=== PATIENT | female | born 1955 | race Hispanic/Latino ===

== ENCOUNTER 2019-05-01 09:21 | Emergency (ER) | payer OTHER ==
[2019-05-01] MEDS ORDERED: GUAIFENESIN-DM 200/20 MG 10 ML ONE (09:55)
[2019-05-01] MEDS ORDERED: METHYLPREDNISOLONE SOD SUCC 125MG/2ML VIAL ONE (09:55)
[2019-05-01] MEDS ORDERED: ALBUTEROL SULFATE 0.083% 2.5 MG/3 ML INH IH ONE ×2 (10:05→12:55)
[2019-05-01 11:57] LABS: BILIRUBIN,TOTAL 0.8 mg/dL (0.2-1.0); POTASSIUM 3.8 mmol/L (3.5-5.1); TOTAL PROTEIN, SERUM 7.5 g/dL (6.0-8.3)
[2019-05-01 12:17] LABS: ALBUMIN 3.8 g/dL (3.5-5.0); CREATININE 0.4 mg/dL (0.5-1.5)
[2019-05-01] MEDS ORDERED: AZITHROMYCIN 250 MG TABLET PO ONE (12:44)
[2019-05-01] MEDS ORDERED: ACETAMINOPHEN EXTRA STRENGTH 500 MG TABLET ONE (12:44)
[2019-05-01 13:08] LABS: BASOPHILS % (AUTO) 0.3 % (0.0-5.0); EOSINOPHILS % (AUTO) 0.3 % (0.0-8.0); HEMATOCRIT 44.1 % (36-48); LYMPHOCYTES % (AUTO) 14.2 % (21.0-51.0); MEAN CORPUSCULAR HEMOGLOBIN 28.6 pg (27.0-33.0); MEAN CORPUSCULAR HGB CONC 32.7 g/dL (32.0-36.0); MEAN CORPUSCULAR VOLUME 87.7 fL (79-99); MONOCYTES % (AUTO) 3.4 % (3.0-13.0); NEUTROPHILS % (AUTO) 81.5 % (40.0-77.0); PLATELET COUNT (AUTO) 121 K/uL (130-400); RED BLOOD CELL COUNT(AUTO) 5.03 MIL/uL (4.00-5.50); RED CELL DISTRIBUTION WIDTH 13.2 % (11.0-15.5); WHITE BLOOD COUNT (AUTO) 3.6 K/uL (4.8-10.8)
== END 2019-05-01 13:29 | disposition home or self-care (01) ==
LOC: EDH 09:21
DX: J20.9 Acute bronchitis, unspecified (principal); J02.0 Streptococcal pharyngitis; Z90.49 Acquired absence of other specified parts of digestive tract; Z90.710 Acquired absence of both cervix and uterus; Z98.890 Other specified postprocedural states
CPT/HCPCS: 36415; 71046; 80053; 85025; 87040; 87804 ×2; 87880; 94640 ×2; 96372; 99284; J2930

== ENCOUNTER 2019-06-12 08:16 | Emergency (ER) | payer OTHER ==
[2019-06-12 08:49] LABS: BASOPHILS % (AUTO) 0.6 % (0.0-5.0); EOSINOPHILS % (AUTO) 4.2 % (0.0-8.0); HEMATOCRIT 40.9 % (36-48); LYMPHOCYTES % (AUTO) 25.5 % (21.0-51.0); MEAN CORPUSCULAR HEMOGLOBIN 29.3 pg (27.0-33.0); MEAN CORPUSCULAR HGB CONC 33.5 g/dL (32.0-36.0); MEAN CORPUSCULAR VOLUME 87.6 fL (79-99); MONOCYTES % (AUTO) 6.3 % (3.0-13.0); NEUTROPHILS % (AUTO) 63.2 % (40.0-77.0); PLATELET COUNT (AUTO) 142 K/uL (130-400); RED BLOOD CELL COUNT(AUTO) 4.67 MIL/uL (4.00-5.50); RED CELL DISTRIBUTION WIDTH 13.5 % (11.0-15.5); WHITE BLOOD COUNT (AUTO) 5.1 K/uL (4.8-10.8)
[2019-06-12 09:00] LABS: CREATININE 0.8 mg/dL (0.5-1.5); POTASSIUM 3.8 mmol/L (3.5-5.1)
[2019-06-12 09:02] LABS: APPEARANCE,URINE SL CLOUDY (CLEAR); BILIRUBIN,URINE NEGATIVE (NEGATIVE); COLOR,URINE YELLOW (YELLOW); GLUCOSE, URINE (UA) NEGATIVE (NEGATIVE); KETONES,URINE NEGATIVE (NEGATIVE); LEUKOCYTE ESTERASE ,URINE MODERATE (NEGATIVE); NITRATE,URINE NEGATIVE (NEGATIVE); OCCULT BLOOD,URINE TRACE-INTACT (NEGATIVE); PH,URINE 5.5 (5.0-8.0); PROTEIN,URINE NEGATIVE (NEGATIVE); UROBILINOGEN,URINE 0.2 mg/dL (0.2-1.0)
[2019-06-12 09:04] LABS: ALBUMIN 3.3 g/dL (3.5-5.0); BILIRUBIN,TOTAL 0.6 mg/dL (0.2-1.0); TOTAL PROTEIN, SERUM 7.1 g/dL (6.0-8.3)
[2019-06-12 09:09] LABS: INR 1.02 (0.85-1.15); PARTIAL THROMBOPLASTIN TIME 27.6 SEC (26.3-35.5); PROTHROMBIN TIME 10.7 SEC (9.6-11.6)
[2019-06-12 09:10] LABS: BACTERIA,URINE Many /HPF (None Seen); MUCUS,URINE Few LPF (None Seen); RBC,URINE 0-1 /HPF (0-1); SQUAMOUS EPITHELIAL CELL,UR Many /HPF (0-2)
[2019-06-12] MEDS ORDERED: KETOROLAC TROMETHAMINE 30MG/ML ONE (09:53)
[2019-06-12] MEDS ORDERED: CEFTRIAXONE SODIUM 1 GM ONE (09:53)
[2019-06-12] MEDS ORDERED: SODIUM CHLORIDE 0.9% 1000ML 1,000 ML IV ONE (09:54)
== END 2019-06-12 10:49 | disposition home or self-care (01) ==
LOC: EDH 08:16
DX: N39.0 Urinary tract infection, site not specified (principal); R03.0 Elevated blood-pressure reading, without diagnosis of hypertension; Z90.49 Acquired absence of other specified parts of digestive tract; Z90.710 Acquired absence of both cervix and uterus
CPT/HCPCS: 36415; 71045; 80053; 81001; 82150; 82550; 83690; 84484; 85025; 85610; 85730; 87077; 87088; 87186; 93005; 96361; 96374; 96375; 99285; J0696; J1885; J7030

== ENCOUNTER → 2019-07-12 | Outpatient (CLI) | payer OTHER | END | disposition home or self-care (01) | LOC: RAH 08:25 | PROVIDERS: ATTEND Internal Medicine | DX: K76.0 Fatty (change of) liver, not elsewhere classified (principal); Z90.49 Acquired absence of other specified parts of digestive tract | CPT/HCPCS: 76705 ==

== ENCOUNTER 2019-11-04 12:41 | Inpatient (IN) | payer OTHER ==
[~2019-11-04] VITALS: Ht 162.6 cm; Wt 101.4 kg
[2019-11-04 13:58] LABS: BASOPHILS % (AUTO) 0.3 % (0.0-5.0); HEMATOCRIT 40.8 % (36-48); LYMPHOCYTES % (AUTO) 8.8 % (21.0-51.0); MEAN CORPUSCULAR HEMOGLOBIN 29.5 pg (27.0-33.0); MEAN CORPUSCULAR HGB CONC 34.8 g/dL (32.0-36.0); MEAN CORPUSCULAR VOLUME 84.8 fL (79-99); MONOCYTES % (AUTO) 4.6 % (3.0-13.0); PLATELET COUNT (AUTO) 143 K/uL (130-400); RED BLOOD CELL COUNT(AUTO) 4.81 MIL/uL (4.00-5.50); RED CELL DISTRIBUTION WIDTH 12.7 % (11.0-15.5); WHITE BLOOD COUNT (AUTO) 3.9 K/uL (4.8-10.8)
[2019-11-04 14:09] LABS: ABG BASE EXCESS -1.5 mmol/L (-2.0-3.0); ABG HCO3 22.2 mmol/L (21.0-28.0); ABG OXYGEN SATURATION 83.8 % (95.0-99.0); ABG PCO2 35 mmHg (32-45)
[2019-11-04] MEDS ORDERED: ALBUTEROL INHALER 90MCG/INH IH ONE (14:14)
[2019-11-04] MEDS ORDERED: METHYLPREDNISOLONE SOD SUCC 40MG/ML 1ML ONE (14:15)
[2019-11-04] MEDS ORDERED: CEFTRIAXONE SODIUM 1 GM ONE (14:15)
[2019-11-04] MEDS ORDERED: SODIUM CHLORIDE 0.9% 50 ML IV ONE (14:16)
[2019-11-04 14:19] LABS: POTASSIUM 3.9 mmol/L (3.5-5.1)
[2019-11-04 14:20] LABS: INR 1.02 (0.85-1.15); PARTIAL THROMBOPLASTIN TIME 29.9 SEC (26.3-35.5)
[2019-11-04] MEDS ORDERED: SODIUM CHLORIDE 0.9% 1000ML 1,000 ML IV ONE (14:21)
[2019-11-04 14:32] LABS: ALBUMIN 3.1 g/dL (3.5-5.0); BILIRUBIN,TOTAL 0.8 mg/dL (0.2-1.0); TOTAL PROTEIN, SERUM 7.4 g/dL (6.0-8.3); TROPONIN I 0.04 ng/mL (0.00-0.06)
[2019-11-04] MEDS ORDERED: AZITHROMYCIN 500MG+NS 250ML 250 ML IV ONE (14:41)
[2019-11-04 15:19] LABS: APPEARANCE,URINE Clear (CLEAR); BILIRUBIN,URINE Negative (NEGATIVE); COLOR,URINE Dark Yellow (YELLOW); GLUCOSE, URINE (UA) Negative (NEGATIVE); KETONES,URINE Negative (NEGATIVE); LEUKOCYTE ESTERASE ,URINE Trace (NEGATIVE); NITRATE,URINE Positive (NEGATIVE); OCCULT BLOOD,URINE Trace (NEGATIVE); PROTEIN,URINE Trace mg/dL (NEGATIVE)
[2019-11-04 16:03] LABS: BACTERIA,URINE Moderate /HPF (None Seen); RBC,URINE 0-1 /HPF (0-1)
[2019-11-04 16:04] LABS: SQUAMOUS EPITHELIAL CELL,UR Few /HPF (0-2)
[2019-11-04 16:05] LABS: MUCUS,URINE Few LPF (None Seen)
[2019-11-04 21:00] VITALS: BP 99/58
--- NOTE | 2019-11-04 21:00 | NUR ---
CHANGE SHIFT ASSESSMENT DONE, PLEASE REFER TO CHART. NO MEDS DUE AT THIS TIME. ASSISTED TO URINATE IN BEDPAN. PLACED A DIAPER PT REQUESTED. KEPT COMFORTABLE WITH HOB ELEVATED. WILL MONITOR PT. Addendum: 11/05/19 at 0141 by GAURAV MEYER RN RN Amended: Links added.
[2019-11-05] VITALS: BP 105/65
[2019-11-05] MEDS ORDERED: ERGOCALCIFEROL (VITAMIN D2) 50,000 UNIT CAPSULE PO ONE
[2019-11-05] MEDS ORDERED: ALBUTEROL INHALER 90MCG/INH IH PRN
[2019-11-05] MEDS ORDERED: ONDANSETRON HCL 4 MG/2 ML VIAL IV PRN
--- NOTE | 2019-11-05 | NUR ---
ADMIT KESHAWN ALVA RN, ASKED ABOUT PT'S STATUS. INFORMED THAT PT HAS NOT BEEN ADMITTED YET. VANIGE, ENVIRONMENTAL REMEDIATION SPECIALIST BUTT MAKER FOR HOSPITALIST WAS PAGED AND INFORMED OF PENDING ADMISSION BY ER MD. NEW ORDERS RECEIVED, PLEASE REFER TO CPOE.
[2019-11-05] MEDS ORDERED: IOHEXOL-350 75 ML VIAL IV ONE (00:26)
--- NOTE | 2019-11-05 01:00 | NUR ---
CONSENT TROLLEY CAR MECHANIC CALLED ABOUT CT. SENIOR MATERIALS ANALYST ASSURED TO GET CONSENT AND HAVE PIV ACCESS. EXPLAINED NEED TO CT SCAN TO PT, VERBALIZES UNDERSTANDING. CONSENT SIGNED AND WITNESSED BY SENIOR MATERIALS ANALYST. PLACED IN CHART. PIV INSERTED TO RFA G20. AWAITING CT.
[2019-11-05] MEDS ORDERED: ERGOCALCIFEROL (VITAMIN D2) 50,000 UNIT CAPSULE ONE (01:01)
[2019-11-05] MEDS ORDERED: CEFTRIAXONE SODIUM 1 GM ONE ×2 (01:01→10:29)
[2019-11-05] MEDS: CEFTRIAXONE SODIUM 1 GM IVP SCH ×2 (01:05→11:18)
--- NOTE | 2019-11-05 01:49 | NUR ---
CT PT TAKEN TO CT SCAN BY ROLL CLEANER.
[2019-11-05 04:00] VITALS: BP 109/64
--- NOTE | 2019-11-05 05:30 | NUR ---
DRAW ASKED DEBBIE DAVEY TO DRAW BLOOD OF PT. SENT TO LAB VIA TUBE SYSTEM. NO CONCERNS VERBALIZED. FOR MORE CARE.
--- NOTE | 2019-11-05 08:00 | NUR ---
ASSUMED CARE OF PATIENT RECEIVED REPORT FROM NIGHT NURSE, DEBBIE CONLEY. PATIENT O X 3, PT NOTED TO BE WEAK. HOB 30 DEGREES. RESPIRATIONS LABORED AT TIMES OF EXERTION INCLUDING TALKING AND REPOSITIONING INCLUDING LEFT AND RIGHT SIDE LYING POSITION. OXYGEN @ 100% NON REBREATHER MASK. NOTED TO DESATURATED WHEN REPOSITIONED OR EXERTION INCLUDING TALKING O2 SATURATIONS NOTED TO DROP TO 80'S. PT INSTRUCTED TO DO RELAXATION BREATHING EXERCISES. PT VOIDS INCONTINENT, DIAPER CHANGED, AND PERICARE RENDERED. REPOSITIONED PATIENT IN THE BED. BED IN LOWEST POSITION. CALLBELL IN REACH. SIDE RAILS UP X 2.
[2019-11-05 08:30] VITALS: BP 116/71
[2019-11-05] MEDS ORDERED: ENOXAPARIN SODIUM 40 MG/0.4 ML SYRINGE SQ SCH (09:00)
[2019-11-05] MEDS ORDERED: DOXYCYCLINE HYCLATE 100 MG TABLET PO ONE ×2 (10:28→20:22)
[2019-11-05] MEDS ORDERED: ASCORBIC ACID 500 MG TAB ONE (10:29)
[2019-11-05] MEDS ORDERED: ENOXAPARIN SODIUM 40 MG/0.4 ML SYRINGE SQ ONE (10:29)
[2019-11-05] MEDS ORDERED: ZINC SULFATE 220 CAPSULE ONE (10:29)
[2019-11-05] MEDS ORDERED: METHYLPREDNISOLONE SOD SUCC 125MG/2ML VIAL ONE (10:32)
[2019-11-05] MEDS ORDERED: FAMOTIDINE/PF 20 MG/2 ML VIAL IV ONE (10:32)
[2019-11-05] MEDS: DOXYCYCLINE HYCLATE 100 MG TABLET PO SCH ×2 (10:43→21:00)
[2019-11-05] MEDS: ZINC SULFATE 220 CAPSULE PO SCH (10:43)
[2019-11-05] MEDS: ASCORBIC ACID 500 MG TAB PO SCH (10:43)
[2019-11-05] MEDS: METHYLPREDNISOLONE SOD SUCC 40MG/ML 1ML IVP SCH ×3 (10:43→21:00)
[2019-11-05] MEDS: FAMOTIDINE 20MG TAB 20 MG TAB PO SCH ×2 (10:43→21:00)
[2019-11-05 12:30] VITALS: BP 125/64
[2019-11-05] MEDS ORDERED: ACETAMINOPHEN 325 MG TAB ONE ×2 (12:57→16:18)
[2019-11-05] MEDS: ACETAMINOPHEN 325 MG TAB PO PRN (12:59)
[2019-11-05] MEDS ORDERED: ONDANSETRON HCL 4 MG/2 ML VIAL ONE (14:58)
--- NOTE | 2019-11-05 15:00 | NUR ---
REPORT GIVEN TO ED NURSE, LAURA, ASSUMED CARE OF PATIENT.
--- NOTE | 2019-11-05 17:43 | NUR ---
cm note call made to pt spouse, states pt resides at home with spouse, independent with adls and ambulation. no dme. no services. works, dc plan is back home. no dc needs. Addendum: 11/05/19 at 1750 by BETSY MERCADO CM Amended: Links added.
[2019-11-05] MEDS ORDERED: METHYLPREDNISOLONE SOD SUCC 40MG/ML 1ML ONE (21:29)
[2019-11-06] MEDS ORDERED: CEFTRIAXONE SODIUM 1 GM ONE ×2 (01:31→10:55)
[2019-11-06] MEDS: CEFTRIAXONE SODIUM 1 GM IVP SCH ×2 (01:34→12:00)
[2019-11-06 03:44] LABS: HEMATOCRIT 41.7 % (36-48); MEAN CORPUSCULAR HEMOGLOBIN 29.1 pg (27.0-33.0); MEAN CORPUSCULAR HGB CONC 34.1 g/dL (32.0-36.0); MEAN CORPUSCULAR VOLUME 85.5 fL (79-99); RED BLOOD CELL COUNT(AUTO) 4.88 MIL/uL (4.00-5.50); RED CELL DISTRIBUTION WIDTH 12.8 % (11.0-15.5); WHITE BLOOD COUNT (AUTO) 5.9 K/uL (4.8-10.8)
[2019-11-06 03:49] LABS: CREATININE 0.8 mg/dL (0.5-1.5); CRP QUANTITATIVE 57.4 mg/L (0.00-9.0); POTASSIUM 3.9 mmol/L (3.5-5.1)
[2019-11-06] MEDS: FAMOTIDINE 20MG TAB 20 MG TAB PO SCH ×2 (09:00→21:00)
[2019-11-06] MEDS: ZINC SULFATE 220 CAPSULE PO SCH (09:00)
[2019-11-06] MEDS: ASCORBIC ACID 500 MG TAB PO SCH (09:00)
[2019-11-06] MEDS: DOXYCYCLINE HYCLATE 100 MG TABLET PO SCH ×2 (09:00→21:00)
[2019-11-06] MEDS: ENOXAPARIN SODIUM 60 MG/0.6 ML SQ SCH (09:00)
[2019-11-06] MEDS: METHYLPREDNISOLONE SOD SUCC 40MG/ML 1ML IVP SCH ×3 (09:00→21:00)
[2019-11-06] MEDS ORDERED: ASCORBIC ACID 500 MG TAB ONE (10:54)
[2019-11-06] MEDS ORDERED: METHYLPREDNISOLONE SOD SUCC 40MG/ML 1ML ONE ×2 (10:54→22:28)
[2019-11-06] MEDS ORDERED: DOXYCYCLINE HYCLATE 100 MG TABLET PO ONE ×2 (10:54→22:28)
[2019-11-06] MEDS ORDERED: ENOXAPARIN SODIUM 60 MG/0.6 ML SQ ONE (10:54)
[2019-11-06] MEDS ORDERED: FAMOTIDINE/PF 20 MG/2 ML VIAL IV ONE (10:55)
[2019-11-06] MEDS ORDERED: ZINC SULFATE 220 CAPSULE ONE (10:55)
[2019-11-07 04:47] LABS: CRP QUANTITATIVE 48.6 mg/L (0.00-9.0)
[2019-11-07] MEDS ORDERED: ACETAMINOPHEN 325 MG TAB ONE (06:07)
[2019-11-07] MEDS ORDERED: ENOXAPARIN SODIUM 60 MG/0.6 ML SQ ONE (08:41)
[2019-11-07] MEDS ORDERED: DOXYCYCLINE HYCLATE 100 MG TABLET PO ONE ×2 (08:41→20:24)
[2019-11-07] MEDS ORDERED: METHYLPREDNISOLONE SOD SUCC 40MG/ML 1ML ONE ×2 (08:41→20:24)
[2019-11-07] MEDS ORDERED: ASCORBIC ACID 500 MG TAB ONE (08:42)
[2019-11-07] MEDS ORDERED: CEFTRIAXONE SODIUM 1 GM ONE (08:42)
[2019-11-07] MEDS ORDERED: ZINC SULFATE 220 CAPSULE ONE (08:42)
[2019-11-07] MEDS ORDERED: FAMOTIDINE/PF 20 MG/2 ML VIAL IV ONE ×2 (08:43→20:25)
[2019-11-07] MEDS: ENOXAPARIN SODIUM 60 MG/0.6 ML SQ SCH (09:00)
[2019-11-07] MEDS: FAMOTIDINE 20MG TAB 20 MG TAB PO SCH ×2 (09:00→21:00)
[2019-11-07] MEDS: DOXYCYCLINE HYCLATE 100 MG TABLET PO SCH ×2 (09:00→21:00)
[2019-11-07] MEDS: ASCORBIC ACID 500 MG TAB PO SCH (09:00)
[2019-11-07] MEDS: METHYLPREDNISOLONE SOD SUCC 40MG/ML 1ML IVP SCH ×3 (09:00→21:00)
[2019-11-07] MEDS: ZINC SULFATE 220 CAPSULE PO SCH (09:00)
[2019-11-07] MEDS ORDERED: ONDANSETRON HCL 4 MG/2 ML VIAL ONE (11:50)
[2019-11-07] MEDS: CEFTRIAXONE SODIUM 1 GM IVP SCH ×2 (12:00)
--- NOTE | 2019-11-07 15:12 | NUR ---
phone call family updated
[2019-11-07] MEDS ORDERED: LOPERAMIDE HCL 2 MG CAP PO ONE (16:54)
[2019-11-08] MEDS ORDERED: GUAIFENESIN-DM 200/20 MG 10 ML ONE (00:45)
[2019-11-08] MEDS ORDERED: CEFTRIAXONE SODIUM 1 GM ONE ×2 (01:30→08:44)
[2019-11-08 03:36] LABS: BASOPHILS % (AUTO) 0.2 % (0.0-5.0); HEMATOCRIT 43.7 % (36-48); LYMPHOCYTES % (AUTO) 5.4 % (21.0-51.0); MEAN CORPUSCULAR HGB CONC 33.4 g/dL (32.0-36.0); MEAN CORPUSCULAR VOLUME 86.9 fL (79-99); MONOCYTES % (AUTO) 2.2 % (3.0-13.0); NEUTROPHILS % (AUTO) 91.3 % (40.0-77.0); PLATELET COUNT (AUTO) 171 K/uL (130-400); RED BLOOD CELL COUNT(AUTO) 5.03 MIL/uL (4.00-5.50); RED CELL DISTRIBUTION WIDTH 12.8 % (11.0-15.5); WHITE BLOOD COUNT (AUTO) 6.5 K/uL (4.8-10.8)
[2019-11-08 03:56] LABS: ALBUMIN 2.6 g/dL (3.5-5.0); BILIRUBIN,TOTAL 0.7 mg/dL (0.2-1.0); CREATININE 0.9 mg/dL (0.5-1.5); CRP QUANTITATIVE 41.5 mg/L (0.00-9.0); POTASSIUM 3.9 mmol/L (3.5-5.1); TOTAL PROTEIN, SERUM 7.2 g/dL (6.0-8.3)
[2019-11-08] MEDS ORDERED: METHYLPREDNISOLONE SOD SUCC 40MG/ML 1ML ONE (08:02)
[2019-11-08] MEDS ORDERED: ENOXAPARIN SODIUM 60 MG/0.6 ML SQ ONE (08:02)
[2019-11-08] MEDS ORDERED: DOXYCYCLINE HYCLATE 100 MG TABLET PO ONE (08:03)
[2019-11-08] MEDS ORDERED: ZINC SULFATE 220 CAPSULE ONE (08:03)
[2019-11-08] MEDS ORDERED: ASCORBIC ACID 500 MG TAB ONE (08:03)
[2019-11-08] MEDS ORDERED: FAMOTIDINE/PF 20 MG/2 ML VIAL IV ONE (08:04)
[2019-11-08] MEDS: METHYLPREDNISOLONE SOD SUCC 40MG/ML 1ML IVP SCH ×3 (09:00→19:44)
[2019-11-08] MEDS: ZINC SULFATE 220 CAPSULE PO SCH (09:00)
[2019-11-08] MEDS: ENOXAPARIN SODIUM 60 MG/0.6 ML SQ SCH (09:00)
[2019-11-08] MEDS: FAMOTIDINE 20MG TAB 20 MG TAB PO SCH ×2 (09:00→19:45)
[2019-11-08] MEDS: DOXYCYCLINE HYCLATE 100 MG TABLET PO SCH ×2 (09:00→19:44)
[2019-11-08] MEDS: ASCORBIC ACID 500 MG TAB PO SCH (09:00)
[2019-11-08] MEDS ORDERED: ACETAMINOPHEN 325 MG TAB ONE (09:19)
[2019-11-08] MEDS: CEFTRIAXONE SODIUM 1 GM IVP SCH ×3 (12:00→19:45)
--- NOTE | 2019-11-08 16:21 | NUR ---
phone call patient update give to Alfonso Molina, spouse. Opportunity given to ask questions. question answered.
[2019-11-08] MEDS ORDERED: LORAZEPAM 2 MG/ML 1 ML VIAL IVP PRN (16:30)
[2019-11-08] MEDS ORDERED: LORAZEPAM 2 MG/ML 1 ML VIAL ONE (16:32)
[2019-11-08 22:50] VITALS: BP 126/74
[2019-11-08] MEDS ORDERED: SODIUM CHLORIDE 0.9% 500ML 1,000 ML IV ONE (23:41)
[2019-11-09] VITALS (7 sets, daily range): BP systolic 121–150; BP diastolic 75–83
[2019-11-09 06:56] LABS: HEMATOCRIT 39.4 % (36-48); LYMPHOCYTES % (AUTO) 8.5 % (21.0-51.0); MEAN CORPUSCULAR HEMOGLOBIN 28.9 pg (27.0-33.0); MEAN CORPUSCULAR HGB CONC 33.5 g/dL (32.0-36.0); MEAN CORPUSCULAR VOLUME 86.4 fL (79-99); MONOCYTES % (AUTO) 3.3 % (3.0-13.0); NEUTROPHILS % (AUTO) 87.1 % (40.0-77.0); PLATELET COUNT (AUTO) 152 K/uL (130-400); RED BLOOD CELL COUNT(AUTO) 4.56 MIL/uL (4.00-5.50); RED CELL DISTRIBUTION WIDTH 12.5 % (11.0-15.5); WHITE BLOOD COUNT (AUTO) 4.5 K/uL (4.8-10.8)
[2019-11-09] MEDS: ACETAMINOPHEN 325 MG TAB PO PRN ×3 (06:59→20:32)
[2019-11-09 07:00] LABS: ALBUMIN 2.6 g/dL (3.5-5.0); BILIRUBIN,TOTAL 0.7 mg/dL (0.2-1.0); CREATININE 0.7 mg/dL (0.5-1.5); CRP QUANTITATIVE 17.4 mg/L (0.00-9.0); POTASSIUM 3.6 mmol/L (3.5-5.1)
[2019-11-09] MEDS: FAMOTIDINE 20MG TAB 20 MG TAB PO SCH ×2 (08:11→20:32)
[2019-11-09] MEDS: METHYLPREDNISOLONE SOD SUCC 40MG/ML 1ML IVP SCH ×3 (08:12→20:32)
[2019-11-09] MEDS: ASCORBIC ACID 500 MG TAB PO SCH (08:12)
[2019-11-09] MEDS: ZINC SULFATE 220 CAPSULE PO SCH (08:12)
[2019-11-09] MEDS: DOXYCYCLINE HYCLATE 100 MG TABLET PO SCH ×2 (08:12→20:32)
[2019-11-09] MEDS: ENOXAPARIN SODIUM 60 MG/0.6 ML SQ SCH (08:13)
[2019-11-09] MEDS: CEFTRIAXONE SODIUM 1 GM IVP SCH (12:52)
[2019-11-09 14:41] LABS: HEMOGLOBIN A1C 6.1 % (4.0-6.0)
[2019-11-09] MEDS: INSULIN HUMULIN R 100 UNIT/ML 3ML SQ SCH ×2 (16:30→21:00)
[2019-11-10 01:38] VITALS: BP 135/76
--- NOTE | 2019-11-10 02:23 | NUR ---
Non-Compliant with O2 Patient has been caught several times without her oxygen in her nose with her O2 sats. in the 50s-60s. She has been EDUCATED on numerous occasions the importance of keeping the oxygen on for her safety. However, she still chooses to remove the oxygen anyway. Considering that, she is being closely monitored by the staff.
[2019-11-10 04:38] LABS: BASOPHILS % (AUTO) 0.4 % (0.0-5.0); HEMATOCRIT 40.7 % (36-48); LYMPHOCYTES % (AUTO) 6.2 % (21.0-51.0); MEAN CORPUSCULAR HEMOGLOBIN 28.9 pg (27.0-33.0); MEAN CORPUSCULAR HGB CONC 33.4 g/dL (32.0-36.0); MEAN CORPUSCULAR VOLUME 86.4 fL (79-99); MONOCYTES % (AUTO) 2.7 % (3.0-13.0); PLATELET COUNT (AUTO) 155 K/uL (130-400); RED BLOOD CELL COUNT(AUTO) 4.71 MIL/uL (4.00-5.50); WHITE BLOOD COUNT (AUTO) 5.2 K/uL (4.8-10.8)
[2019-11-10 05:34] LABS: ALBUMIN 2.5 g/dL (3.5-5.0); BILIRUBIN,TOTAL 0.7 mg/dL (0.2-1.0); CREATININE 0.8 mg/dL (0.5-1.5); CRP QUANTITATIVE 7.5 mg/L (0.00-9.0); POTASSIUM 3.5 mmol/L (3.5-5.1); TOTAL PROTEIN, SERUM 6.5 g/dL (6.0-8.3)
[2019-11-10 06:16] VITALS: BP 139/72
[2019-11-10] MEDS: INSULIN HUMULIN R 100 UNIT/ML 3ML SQ SCH ×4 (06:18→21:06)
[2019-11-10 08:00] VITALS: BP 107/67
[2019-11-10] MEDS: METHYLPREDNISOLONE SOD SUCC 40MG/ML 1ML IVP SCH ×3 (08:59→20:53)
[2019-11-10] MEDS: ZINC SULFATE 220 CAPSULE PO SCH (08:59)
[2019-11-10] MEDS: DOXYCYCLINE HYCLATE 100 MG TABLET PO SCH ×2 (08:59→20:53)
[2019-11-10] MEDS: ASCORBIC ACID 500 MG TAB PO SCH (08:59)
[2019-11-10] MEDS: FAMOTIDINE 20MG TAB 20 MG TAB PO SCH ×2 (08:59→20:53)
[2019-11-10] MEDS: ENOXAPARIN SODIUM 60 MG/0.6 ML SQ SCH (09:00)
[2019-11-10 11:00] VITALS: BP 115/48
--- NOTE | 2019-11-10 12:00 | NUR ---
PHYSICIAN ROUNDS DR HENRRY SALES ROUNDED ON PATIENT AND NO NEW ORDERS RECEIVED, WILL CONTINUE TO MONITOR
[2019-11-10] MEDS: CEFTRIAXONE SODIUM 1 GM IVP SCH ×2 (12:41)
[2019-11-10] MEDS: GUAIFENESIN-DM 200/20 MG 10 ML PO PRN (12:44)
[2019-11-10] MEDS ORDERED: PHARMACY COMMUNICATION MISC SCH (12:45)
--- NOTE | 2019-11-10 13:34 | NUR ---
PHYSICIAN ROUNDS DR JOAN FRANCO ROUNDED ON PATIENT ORDERS RECEIVED TO POTASSIUM REPLACEMENT LEVEL 3.5 TODAY ORDER 20MEG PO TIME 1 DOSE, ORDERED PLACED
[2019-11-10] MEDS ORDERED: POTASSIUM CHLORIDE 20 MEQ ERTAB PO SCH (14:25)
[2019-11-10 15:25] VITALS: BP 120/76
[2019-11-10] MEDS ORDERED: COMPOUND IV REFRIGERATED 1 EACH IVSOLN MISC PRN (15:45)
[2019-11-10] MEDS ORDERED: REMDESIVIR (EUA) 520 100 MG VIAL IV ONE (16:00)
[2019-11-10] MEDS ORDERED: REMDESIVIR (EUA) 520 200 MG in SODIUM CHLORIDE 0.9% 250 ML IV SCH (16:00)
--- NOTE | 2019-11-10 17:10 | NUR ---
Nutrition Screen: RD screen due to LOS x 6 days. Pt currently on oral diet Regular with consistently poor intake of 50% or less. Per nurse, patient picks at food but get short of breath and is unable to finish meals. Enteral nutrition is recommend until they are able to eat at least 75% of meals consistently. Pt with potassium replaced. Recommend: Initiate TF until patient breathing improves and is able to eat orally. Pulmocare at 10m/hr for 12 hours and monitor tolerance. H20 flushes 150ml every 6 hrs. If patient is able to tolerate trophic feedings, increase by 5ml q 8hrs to goal rate of 40ml/hr. H20 150ml every 4 hours. Will follow up tolerance of TF to transition to bolus for diet supplementation and respiratory status. Add Vit D 1000IU daily. Addendum: 11/10/19 at [address] Amended: Links added.
[2019-11-10] MEDS: ACETAMINOPHEN 325 MG TAB PO PRN (20:54)
[2019-11-10 20:59] VITALS: BP 138/78
[2019-11-11 00:23] VITALS: BP 119/71
[2019-11-11] MEDS: CEFTRIAXONE SODIUM 1 GM IVP SCH ×2 (00:32→14:22)
[2019-11-11 05:28] LABS: CARBON DIOXIDE 33 mmol/L (21-32); CHLORIDE 108 mmol/L (101-111); CREATININE 0.7 mg/dL (0.5-1.5); GLOMERULAR FILTR. RATE CALC 90 mL/min (>60); GLUCOSE,RANDOM 150 mg/dL (70-105); POTASSIUM 3.8 mmol/L (3.5-5.1); SODIUM SERUM 146 mmol/L (136-145); UREA NITROGEN, BLOOD 28 mg/dL (7-18)
[2019-11-11 05:32] LABS: ALANINE AMINOTRANSFERASE 53 U/L (12-78); ALBUMIN 2.3 g/dL (3.5-5.0); ASPARTATE AMINOTRANSFERASE 31 U/L (10-37); BILIRUBIN,TOTAL 0.6 mg/dL (0.2-1.0); LACTATE DEHYDROGENASE 389 U/L (81-234); TOTAL PROTEIN, SERUM 6.4 g/dL (6.0-8.3)
[2019-11-11] MEDS: INSULIN HUMULIN R 100 UNIT/ML 3ML SQ SCH ×4 (05:47→22:07)
[2019-11-11 06:08] VITALS: BP 108/55
[2019-11-11 08:00] VITALS: BP 121/68
[2019-11-11] MEDS: FAMOTIDINE 20MG TAB 20 MG TAB PO SCH ×2 (08:58→22:06)
[2019-11-11] MEDS: ENOXAPARIN SODIUM 60 MG/0.6 ML SQ SCH (08:58)
[2019-11-11] MEDS: DOXYCYCLINE HYCLATE 100 MG TABLET PO SCH ×2 (08:58→22:06)
[2019-11-11] MEDS: METHYLPREDNISOLONE SOD SUCC 40MG/ML 1ML IVP SCH ×3 (08:58→22:06)
[2019-11-11] MEDS: ASCORBIC ACID 500 MG TAB PO SCH (08:58)
[2019-11-11] MEDS: ZINC SULFATE 220 CAPSULE PO SCH (08:58)
[2019-11-11 11:00] VITALS: BP 112/60
[2019-11-11 16:00] VITALS: BP 99/59
[2019-11-11] MEDS ORDERED: REMDESIVIR (EUA) 520 100 MG VIAL IV ONE (16:00)
[2019-11-11] MEDS: REMDESIVIR (EUA) 520 100 MG in SODIUM CHLORIDE 0.9% 250 ML IV SCH (17:31)
[2019-11-11] MEDS: GUAIFENESIN-DM 200/20 MG 10 ML PO PRN (17:35)
[2019-11-11 20:00] VITALS: BP 108/57
[2019-11-12] VITALS: BP 115/68
[2019-11-12] MEDS: GUAIFENESIN-DM 200/20 MG 10 ML PO PRN ×2 (01:10→20:31)
[2019-11-12 04:00] VITALS: BP 115/59
[2019-11-12] MEDS: INSULIN HUMULIN R 100 UNIT/ML 3ML SQ SCH ×4 (05:50→20:50)
[2019-11-12 07:52] LABS: BASOPHILS % (AUTO) 0.3 % (0.0-5.0); HEMATOCRIT 41.2 % (36-48); LYMPHOCYTES % (AUTO) 6.5 % (21.0-51.0); MEAN CORPUSCULAR VOLUME 85.3 fL (79-99); MONOCYTES % (AUTO) 2.7 % (3.0-13.0); NEUTROPHILS % (AUTO) 87.4 % (40.0-77.0); PLATELET COUNT (AUTO) 141 K/uL (130-400); RED BLOOD CELL COUNT(AUTO) 4.83 MIL/uL (4.00-5.50); WHITE BLOOD COUNT (AUTO) 6.7 K/uL (4.8-10.8)
[2019-11-12 08:00] VITALS: BP 115/67
[2019-11-12] MEDS: FAMOTIDINE 20MG TAB 20 MG TAB PO SCH ×2 (08:13→20:32)
[2019-11-12] MEDS: ZINC SULFATE 220 CAPSULE PO SCH (08:13)
[2019-11-12] MEDS: ASCORBIC ACID 500 MG TAB PO SCH (08:13)
[2019-11-12] MEDS: ENOXAPARIN SODIUM 60 MG/0.6 ML SQ SCH (08:14)
[2019-11-12] MEDS: METHYLPREDNISOLONE SOD SUCC 40MG/ML 1ML IVP SCH ×3 (08:30→20:32)
[2019-11-12 08:33] LABS: CARBON DIOXIDE 31 mmol/L (21-32); CHLORIDE 109 mmol/L (101-111); CREATININE 0.8 mg/dL (0.5-1.5); GLOMERULAR FILTR. RATE CALC 77 mL/min (>60); POTASSIUM 3.9 mmol/L (3.5-5.1); SODIUM SERUM 144 mmol/L (136-145)
[2019-11-12 08:51] LABS: GLUCOSE,RANDOM 157 mg/dL (70-105); LACTATE DEHYDROGENASE 396 U/L (81-234); UREA NITROGEN, BLOOD 29 mg/dL (7-18)
[2019-11-12 12:00] VITALS: BP 110/56
[2019-11-12] MEDS: ACETAMINOPHEN 325 MG TAB PO PRN ×2 (13:28→20:32)
[2019-11-12] MEDS: REMDESIVIR (EUA) 520 100 MG in SODIUM CHLORIDE 0.9% 250 ML IV SCH (14:58)
[2019-11-12 16:00] VITALS: BP 102/53
[2019-11-12] MEDS ORDERED: REMDESIVIR (EUA) 520 100 MG VIAL IV ONE (16:00)
[2019-11-12 20:00] VITALS: BP 102/60
[2019-11-13] VITALS: BP 116/69
[2019-11-13 04:00] VITALS: BP 115/60
[2019-11-13] MEDS: INSULIN HUMULIN R 100 UNIT/ML 3ML SQ SCH ×4 (06:07→21:16)
[2019-11-13 07:11] LABS: BASOPHILS % (AUTO) 0.3 % (0.0-5.0); HEMATOCRIT 39.7 % (36-48); LYMPHOCYTES % (AUTO) 5.7 % (21.0-51.0); MEAN CORPUSCULAR HEMOGLOBIN 28.9 pg (27.0-33.0); MEAN CORPUSCULAR HGB CONC 34.3 g/dL (32.0-36.0); MEAN CORPUSCULAR VOLUME 84.5 fL (79-99); NEUTROPHILS % (AUTO) 88.6 % (40.0-77.0); PLATELET COUNT (AUTO) 124 K/uL (130-400)
[2019-11-13 07:51] LABS: CARBON DIOXIDE 30 mmol/L (21-32); CHLORIDE 108 mmol/L (101-111); CREATININE 0.7 mg/dL (0.5-1.5); GLOMERULAR FILTR. RATE CALC 90 mL/min (>60); GLUCOSE,RANDOM 174 mg/dL (70-105); LACTATE DEHYDROGENASE 419 U/L (81-234); POTASSIUM 3.6 mmol/L (3.5-5.1); SODIUM SERUM 143 mmol/L (136-145); UREA NITROGEN, BLOOD 31 mg/dL (7-18)
--- NOTE | 2019-11-13 07:57 | NUR ---
ASSESSMENT Patient is non-compliant with her oxygen. She has been informed on numerous occasions the importance of keeping the O2 in her nose. However, she still refuses to cooperate. Charge nurse was made aware.
[2019-11-13 08:00] VITALS: BP 92/58
[2019-11-13] MEDS: ASCORBIC ACID 500 MG TAB PO SCH (09:35)
[2019-11-13] MEDS: FAMOTIDINE 20MG TAB 20 MG TAB PO SCH ×2 (09:35→20:04)
[2019-11-13] MEDS: ZINC SULFATE 220 CAPSULE PO SCH (09:35)
[2019-11-13] MEDS: METHYLPREDNISOLONE SOD SUCC 40MG/ML 1ML IVP SCH ×3 (09:35→20:04)
[2019-11-13] MEDS: ENOXAPARIN SODIUM 60 MG/0.6 ML SQ SCH (09:36)
[2019-11-13 12:00] VITALS: BP 99/71
[2019-11-13 16:00] VITALS: BP 101/59
[2019-11-13] MEDS ORDERED: REMDESIVIR (EUA) 520 100 MG VIAL IV ONE (16:00)
[2019-11-13] MEDS: REMDESIVIR (EUA) 520 100 MG in SODIUM CHLORIDE 0.9% 250 ML IV SCH (17:28)
--- NOTE | 2019-11-13 17:32 | NUR ---
Patient's VSS and no complaints of pain or discomfort. She is still receiving High flow Oxygen with adequate O2 sat. Will monitor for any changes
[2019-11-13 19:00] VITALS: BP 99/54
[2019-11-13] MEDS: ACETAMINOPHEN 325 MG TAB PO PRN (20:05)
[2019-11-13] MEDS: GUAIFENESIN-DM 200/20 MG 10 ML PO PRN (20:06)
[2019-11-14] VITALS: BP 103/69
[2019-11-14] MEDS: GUAIFENESIN-DM 200/20 MG 10 ML PO PRN ×2 (00:40→23:26)
[2019-11-14] MEDS: ACETAMINOPHEN 325 MG TAB PO PRN ×2 (00:40→20:45)
[2019-11-14 04:00] VITALS: BP 108/54
[2019-11-14] MEDS: INSULIN HUMULIN R 100 UNIT/ML 3ML SQ SCH ×4 (06:11→20:24)
[2019-11-14 06:13] LABS: BASOPHILS % (AUTO) 0.1 % (0.0-5.0); HEMATOCRIT 39.9 % (36-48); LYMPHOCYTES % (AUTO) 5.6 % (21.0-51.0); MEAN CORPUSCULAR HEMOGLOBIN 29.1 pg (27.0-33.0); MEAN CORPUSCULAR HGB CONC 34.8 g/dL (32.0-36.0); MEAN CORPUSCULAR VOLUME 83.6 fL (79-99); MONOCYTES % (AUTO) 1.6 % (3.0-13.0); NEUTROPHILS % (AUTO) 90.4 % (40.0-77.0); PLATELET COUNT (AUTO) 118 K/uL (130-400); RED BLOOD CELL COUNT(AUTO) 4.77 MIL/uL (4.00-5.50); WHITE BLOOD COUNT (AUTO) 7.5 K/uL (4.8-10.8)
[2019-11-14 06:45] LABS: CARBON DIOXIDE 29 mmol/L (21-32); CHLORIDE 106 mmol/L (101-111); CREATININE 0.7 mg/dL (0.5-1.5); GLOMERULAR FILTR. RATE CALC 90 mL/min (>60); GLUCOSE,RANDOM 155 mg/dL (70-105); LACTATE DEHYDROGENASE 415 U/L (81-234); POTASSIUM 3.9 mmol/L (3.5-5.1); SODIUM SERUM 143 mmol/L (136-145); UREA NITROGEN, BLOOD 28 mg/dL (7-18)
[2019-11-14 08:00] VITALS: BP 106/53
[2019-11-14] MEDS: ASCORBIC ACID 500 MG TAB PO SCH (09:08)
[2019-11-14] MEDS: ZINC SULFATE 220 CAPSULE PO SCH (09:08)
[2019-11-14] MEDS: FAMOTIDINE 20MG TAB 20 MG TAB PO SCH ×2 (09:08→20:45)
[2019-11-14] MEDS: ENOXAPARIN SODIUM 40 MG/0.4 ML SYRINGE SQ SCH (09:16)
[2019-11-14] MEDS: METHYLPREDNISOLONE SOD SUCC 40MG/ML 1ML IVP SCH ×3 (09:20→20:44)
[2019-11-14 11:00] VITALS: BP 85/51
[2019-11-14] MEDS ORDERED: REMDESIVIR (EUA) 520 100 MG VIAL IV ONE (16:00)
[2019-11-14] MEDS: REMDESIVIR (EUA) 520 100 MG in SODIUM CHLORIDE 0.9% 250 ML IV SCH (16:00)
[2019-11-14 16:14] VITALS: BP 106/71
[2019-11-14 21:16] VITALS: BP 95/54
[2019-11-15 00:12] VITALS: BP 98/70
[2019-11-15 03:50] VITALS: BP 118/73
[2019-11-15] MEDS: INSULIN HUMULIN R 100 UNIT/ML 3ML SQ SCH ×4 (05:42→20:28)
[2019-11-15 06:14] LABS: BASOPHILS % (AUTO) 0.2 % (0.0-5.0); HEMATOCRIT 41.8 % (36-48); LYMPHOCYTES % (AUTO) 7.3 % (21.0-51.0); MEAN CORPUSCULAR HGB CONC 34.4 g/dL (32.0-36.0); MEAN CORPUSCULAR VOLUME 84.3 fL (79-99); MONOCYTES % (AUTO) 1.5 % (3.0-13.0); NEUTROPHILS % (AUTO) 87.8 % (40.0-77.0); PLATELET COUNT (AUTO) 121 K/uL (130-400); RED BLOOD CELL COUNT(AUTO) 4.96 MIL/uL (4.00-5.50); RED CELL DISTRIBUTION WIDTH 12.1 % (11.0-15.5); WHITE BLOOD COUNT (AUTO) 8.5 K/uL (4.8-10.8)
[2019-11-15 06:36] LABS: CARBON DIOXIDE 30 mmol/L (21-32); CHLORIDE 103 mmol/L (101-111); CREATININE 0.7 mg/dL (0.5-1.5); GLOMERULAR FILTR. RATE CALC 90 mL/min (>60); GLUCOSE,RANDOM 177 mg/dL (70-105); LACTATE DEHYDROGENASE 654 U/L (81-234); POTASSIUM 4.2 mmol/L (3.5-5.1); SODIUM SERUM 140 mmol/L (136-145); UREA NITROGEN, BLOOD 26 mg/dL (7-18)
[2019-11-15 08:00] VITALS: BP 98/52
[2019-11-15] MEDS: ZINC SULFATE 220 CAPSULE PO SCH (08:58)
[2019-11-15] MEDS: FAMOTIDINE 20MG TAB 20 MG TAB PO SCH ×2 (08:58→20:27)
[2019-11-15] MEDS: METHYLPREDNISOLONE SOD SUCC 40MG/ML 1ML IVP SCH ×3 (08:58→20:26)
[2019-11-15] MEDS: ASCORBIC ACID 500 MG TAB PO SCH (08:58)
[2019-11-15] MEDS: ENOXAPARIN SODIUM 40 MG/0.4 ML SYRINGE SQ SCH (09:00)
[2019-11-15 11:00] VITALS: BP 92/56
[2019-11-15 16:00] VITALS: BP 93/61
--- NOTE | 2019-11-15 17:00 | NUR ---
note HAS HAD A STABLE DAY TODAY. SHE REMAINS ON HIGH FLOW O2 AT 60L. DENIES ANY SOB ONLY WHEN SHE EXERTS HERSELF. BBS DIMINISHED THROUGHOUT. SHE SATS 94-97%. SPOKE TO HER FOR A WHILE WHENEVER I WOULD GO IN THE ROOM. SHE NEEDED A LOT OF REASSURANCE. SHE THOUGHT SHE WAS THE ONLY PATIENT IN THE HOSPITAL THAT HAS BEEN HERE THIS LONG BATTLING COVID. SHE GETS DISCOURAGED BECAUSE SHE DOES NOT SEE ANY IMPROVEMENT. I TOLD HER WHAT SHE COULD BE DOING TO HELP US HELP HER. SHE CAN DO SOME ROM EXERCISES IN BED. MOVE LEGS FOOT PUMPS, HAMSTRING STRETCHES QUADRICEPS STRENGTHENING. I TAUGHT HER HOW TO DO IT AND SHE PROMISED SHE WOULD BE MORE MOBILE IN BED. SHE ALSO PROMISED TO MOVE AROUND AND CHANGE POSITIONS. SHE CANNOT TOLERATE PRONE BUT SHE TURNED HERSELF ON SIDES AND SIT UP STRAIGHT WELL. SHE REPORTED TO DR GOMES SHE HAS NOT BEEN SLEEPING WELL AND SHE WAS ORDERED RESTORIL PRN AT . SHE WAS MADE AWARE OF THIS ORDER AND INSTRUCTED TO REQUEST IT IF NEEDED TONIGHT. VERBALIZED UNDERSTANDING OF ALL THIS.
[2019-11-15 20:00] VITALS: BP 88/60
[2019-11-15] MEDS ORDERED: MIDODRINE HCL 5 MG TABLET ONE (20:36)
[2019-11-15] MEDS: MIDODRINE HCL 5 MG TABLET PO SCH (21:29)
[2019-11-16] VITALS: BP 111/77
--- NOTE | 2019-11-16 02:01 | NUR ---
Low BP At the beginning of my shift, the patient's BP was taken & the best reading was 88/54 (taken numerous times). The patient however was asymptomatic. The hospitalist SCREEN DOOR MAKER Pily was called about the reading & told me to order 2.5mg of midodrine tid for the patient.
[2019-11-16 04:00] VITALS: BP 105/51
[2019-11-16] MEDS: INSULIN HUMULIN R 100 UNIT/ML 3ML SQ SCH ×4 (06:11→20:16)
[2019-11-16 08:00] VITALS: BP 105/66
[2019-11-16] MEDS: FAMOTIDINE 20MG TAB 20 MG TAB PO SCH ×2 (08:51→20:15)
[2019-11-16] MEDS: MIDODRINE HCL 5 MG TABLET PO SCH ×3 (08:51→20:15)
[2019-11-16] MEDS: METHYLPREDNISOLONE SOD SUCC 40MG/ML 1ML IVP SCH ×3 (08:51→20:15)
[2019-11-16] MEDS: ASCORBIC ACID 500 MG TAB PO SCH (08:51)
[2019-11-16] MEDS: ZINC SULFATE 220 CAPSULE PO SCH (08:51)
[2019-11-16] MEDS: ENOXAPARIN SODIUM 40 MG/0.4 ML SYRINGE SQ SCH (08:52)
--- NOTE | 2019-11-16 09:00 | NUR ---
AM ASSESSMENT PT AWAKE , ALERT, AND ORIENTED. O2 PER HIGH FLOW NC. PT STATES FEELING BETTER EVERY DAY, STATES SLEEPING GOOD. NO RESPIRATORY DISTRESS AT REST, PT DOES HAVE EPISODES OF SOB WITH EXERTION. CALL LIGHT WITHIN REACH.
[2019-11-16 11:00] VITALS: BP 97/63
[2019-11-16 16:00] VITALS: BP 93/48
--- NOTE | 2019-11-16 18:00 | NUR ---
PRONE PT AWAKE AND ALERT, ASSISTED TO PRONE POSITION, O2 PER HIGH FLOW NC, O2 SAT 93-94%. CALL LIGHT WITHIN REACH.
[2019-11-16 20:00] VITALS: BP 94/61
[2019-11-17] VITALS (8 sets, daily range): BP systolic 87–136; BP diastolic 41–69
[2019-11-17] MEDS: INSULIN HUMULIN R 100 UNIT/ML 3ML SQ SCH ×5 (05:52→22:17)
[2019-11-17 06:49] LABS: BASOPHILS % (AUTO) 0.1 % (0.0-5.0); HEMATOCRIT 43.6 % (36-48); LYMPHOCYTES % (AUTO) 4.9 % (21.0-51.0); MEAN CORPUSCULAR HEMOGLOBIN 29.1 pg (27.0-33.0); MEAN CORPUSCULAR HGB CONC 33.9 g/dL (32.0-36.0); MEAN CORPUSCULAR VOLUME 85.7 fL (79-99); MONOCYTES % (AUTO) 2.3 % (3.0-13.0); NEUTROPHILS % (AUTO) 91.4 % (40.0-77.0); PLATELET COUNT (AUTO) 125 K/uL (130-400); RED BLOOD CELL COUNT(AUTO) 5.09 MIL/uL (4.00-5.50); RED CELL DISTRIBUTION WIDTH 12.2 % (11.0-15.5); WHITE BLOOD COUNT (AUTO) 7.8 K/uL (4.8-10.8)
[2019-11-17 07:34] LABS: ALANINE AMINOTRANSFERASE 86 U/L (12-78); ALBUMIN 2.1 g/dL (3.5-5.0); ASPARTATE AMINOTRANSFERASE 33 U/L (10-37); BILIRUBIN,TOTAL 0.6 mg/dL (0.2-1.0); CARBON DIOXIDE 29 mmol/L (21-32); CHLORIDE 104 mmol/L (101-111); CREATININE 0.8 mg/dL (0.5-1.5); GLOMERULAR FILTR. RATE CALC 77 mL/min (>60); GLUCOSE,RANDOM 194 mg/dL (70-105); LACTATE DEHYDROGENASE 386 U/L (81-234); POTASSIUM 4.1 mmol/L (3.5-5.1); SODIUM SERUM 140 mmol/L (136-145); TOTAL PROTEIN, SERUM 5.7 g/dL (6.0-8.3); UREA NITROGEN, BLOOD 31 mg/dL (7-18)
[2019-11-17] MEDS: MIDODRINE HCL 5 MG TABLET PO SCH ×3 (09:59→22:10)
[2019-11-17] MEDS: FAMOTIDINE 20MG TAB 20 MG TAB PO SCH ×2 (09:59→22:10)
[2019-11-17] MEDS: METHYLPREDNISOLONE SOD SUCC 40MG/ML 1ML IVP SCH ×3 (09:59→22:10)
[2019-11-17] MEDS: ZINC SULFATE 220 CAPSULE PO SCH (09:59)
[2019-11-17] MEDS: ASCORBIC ACID 500 MG TAB PO SCH (09:59)
[2019-11-17] MEDS: ENOXAPARIN SODIUM 40 MG/0.4 ML SYRINGE SQ SCH (10:00)
[2019-11-17] MEDS: INSULIN GLARGINE 100 UNITS/ML 10 ML VIAL SQ SCH (22:16)
[2019-11-17] MEDS: TEMAZEPAM 7.5 MG CAPSULE PO PRN (22:50)
[2019-11-18 06:21] VITALS: BP 99/57
[2019-11-18] MEDS: INSULIN HUMULIN R 100 UNIT/ML 3ML SQ SCH ×7 (06:21→21:54)
[2019-11-18 07:00] LABS: BASOPHILS % (AUTO) 0.1 % (0.0-5.0); EOSINOPHILS % (AUTO) 0.1 % (0.0-8.0); LYMPHOCYTES % (AUTO) 5.3 % (21.0-51.0); MEAN CORPUSCULAR HEMOGLOBIN 29.3 pg (27.0-33.0); MEAN CORPUSCULAR HGB CONC 34.4 g/dL (32.0-36.0); MEAN CORPUSCULAR VOLUME 85.2 fL (79-99); NEUTROPHILS % (AUTO) 91.9 % (40.0-77.0); PLATELET COUNT (AUTO) 106 K/uL (130-400); RED BLOOD CELL COUNT(AUTO) 4.81 MIL/uL (4.00-5.50); RED CELL DISTRIBUTION WIDTH 12.5 % (11.0-15.5); WHITE BLOOD COUNT (AUTO) 7.9 K/uL (4.8-10.8)
[2019-11-18 07:22] LABS: ALANINE AMINOTRANSFERASE 106 U/L (12-78); ALBUMIN 2.1 g/dL (3.5-5.0); ASPARTATE AMINOTRANSFERASE 59 U/L (10-37); BILIRUBIN,TOTAL 0.8 mg/dL (0.2-1.0); CARBON DIOXIDE 29 mmol/L (21-32); CHLORIDE 103 mmol/L (101-111); CREATININE 0.7 mg/dL (0.5-1.5); GLOMERULAR FILTR. RATE CALC 90 mL/min (>60); GLUCOSE,RANDOM 201 mg/dL (70-105); LACTATE DEHYDROGENASE 385 U/L (81-234); POTASSIUM 4.6 mmol/L (3.5-5.1); SODIUM SERUM 138 mmol/L (136-145); TOTAL PROTEIN, SERUM 5.5 g/dL (6.0-8.3); UREA NITROGEN, BLOOD 31 mg/dL (7-18)
[2019-11-18 08:00] VITALS: BP 86/55
[2019-11-18] MEDS: ZINC SULFATE 220 CAPSULE PO SCH (08:00)
[2019-11-18] MEDS: METHYLPREDNISOLONE SOD SUCC 40MG/ML 1ML IVP SCH ×3 (08:01→21:41)
[2019-11-18] MEDS: ENOXAPARIN SODIUM 40 MG/0.4 ML SYRINGE SQ SCH (08:01)
[2019-11-18] MEDS: FAMOTIDINE 20MG TAB 20 MG TAB PO SCH ×2 (08:01→21:42)
[2019-11-18] MEDS: ASCORBIC ACID 500 MG TAB PO SCH (08:01)
[2019-11-18] MEDS: MIDODRINE HCL 5 MG TABLET PO SCH ×3 (08:01→21:43)
[2019-11-18 09:01] VITALS: BP_SYST 57
[2019-11-18] MEDS ORDERED: IVERMECTIN 3 MG TAB PO SCH (11:30)
[2019-11-18 12:00] VITALS: BP 90/48
--- NOTE | 2019-11-18 15:02 | NUR ---
RD FOLLOW UP Pt tolerating GI Soft/[place] diet order with no report of GI distress. Po intake at 100%. BG 207, Alb 2.1. Vitamin C, Zinc supplementation in place. Also with steroids and Insulin medications. Recommend 75gm CC diet modification Recommend 60mL ProMod QD RD to continue to monitor. Please notify RD as additional nutrition concerns arise. Thank you.
[2019-11-18 16:00] VITALS: BP 98/65
[2019-11-18 20:30] VITALS: BP 94/59
[2019-11-18] MEDS: INSULIN GLARGINE 100 UNITS/ML 10 ML VIAL SQ SCH (21:45)
[2019-11-19] VITALS (7 sets, daily range): BP systolic 90–117; BP diastolic 25–61
[2019-11-19] MEDS: INSULIN HUMULIN R 100 UNIT/ML 3ML SQ SCH ×7 (06:48→22:36)
[2019-11-19 07:40] LABS: HEMATOCRIT 39.7 % (36-48); LYMPHOCYTES % (AUTO) 4.4 % (21.0-51.0); MEAN CORPUSCULAR HEMOGLOBIN 29.4 pg (27.0-33.0); MEAN CORPUSCULAR HGB CONC 34.5 g/dL (32.0-36.0); MEAN CORPUSCULAR VOLUME 85.2 fL (79-99); NEUTROPHILS % (AUTO) 92.8 % (40.0-77.0); PLATELET COUNT (AUTO) 95 K/uL (130-400); RED BLOOD CELL COUNT(AUTO) 4.66 MIL/uL (4.00-5.50); RED CELL DISTRIBUTION WIDTH 12.7 % (11.0-15.5); WHITE BLOOD COUNT (AUTO) 6.4 K/uL (4.8-10.8)
[2019-11-19 07:58] LABS: ALANINE AMINOTRANSFERASE 111 U/L (12-78); ALBUMIN 2.1 g/dL (3.5-5.0); ASPARTATE AMINOTRANSFERASE 46 U/L (10-37); BILIRUBIN,TOTAL 0.7 mg/dL (0.2-1.0); CARBON DIOXIDE 30 mmol/L (21-32); CHLORIDE 105 mmol/L (101-111); CREATININE 0.7 mg/dL (0.5-1.5); GLOMERULAR FILTR. RATE CALC 90 mL/min (>60); GLUCOSE,RANDOM 260 mg/dL (70-105); LACTATE DEHYDROGENASE 292 U/L (81-234); POTASSIUM 4.6 mmol/L (3.5-5.1); SODIUM SERUM 137 mmol/L (136-145); TOTAL PROTEIN, SERUM 5.2 g/dL (6.0-8.3); UREA NITROGEN, BLOOD 32 mg/dL (7-18)
[2019-11-19 08:10] LABS: CRP QUANTITATIVE < 2.00 mg/L (0.00-9.0)
[2019-11-19] MEDS: FAMOTIDINE 20MG TAB 20 MG TAB PO SCH ×2 (09:34→21:44)
[2019-11-19] MEDS: ENOXAPARIN SODIUM 40 MG/0.4 ML SYRINGE SQ SCH (09:34)
[2019-11-19] MEDS: ASCORBIC ACID 500 MG TAB PO SCH (09:34)
[2019-11-19] MEDS: ZINC SULFATE 220 CAPSULE PO SCH (09:34)
[2019-11-19] MEDS: METHYLPREDNISOLONE SOD SUCC 40MG/ML 1ML IVP SCH ×3 (09:34→21:43)
[2019-11-19] MEDS: MIDODRINE HCL 5 MG TABLET PO SCH ×3 (09:34→21:43)
[2019-11-19] MEDS: ACETAMINOPHEN 325 MG TAB PO PRN (17:58)
[2019-11-19] MEDS: TEMAZEPAM 7.5 MG CAPSULE PO PRN (21:45)
[2019-11-19] MEDS: INSULIN GLARGINE 100 UNITS/ML 10 ML VIAL SQ SCH (22:34)
[2019-11-20 05:57] VITALS: BP 107/66
[2019-11-20] MEDS: INSULIN HUMULIN R 100 UNIT/ML 3ML SQ SCH ×7 (07:07→22:50)
[2019-11-20 07:25] VITALS: BP 128/68
[2019-11-20] MEDS: LACTULOSE 20 GM/30 ML UDCUP PO PRN (08:39)
[2019-11-20] MEDS: METHYLPREDNISOLONE SOD SUCC 40MG/ML 1ML IVP SCH ×3 (09:16→20:04)
[2019-11-20] MEDS: ZINC SULFATE 220 CAPSULE PO SCH (09:20)
[2019-11-20] MEDS: ASCORBIC ACID 500 MG TAB PO SCH (09:20)
[2019-11-20] MEDS: MIDODRINE HCL 5 MG TABLET PO SCH ×3 (09:20→20:05)
[2019-11-20] MEDS: ENOXAPARIN SODIUM 40 MG/0.4 ML SYRINGE SQ SCH (09:20)
[2019-11-20] MEDS: FAMOTIDINE 20MG TAB 20 MG TAB PO SCH ×2 (09:20→20:05)
[2019-11-20 11:43] VITALS: BP 91/57
[2019-11-20 17:26] VITALS: BP 96/57
[2019-11-20] MEDS: ACETAMINOPHEN 325 MG TAB PO PRN (19:02)
[2019-11-20 22:25] VITALS: BP 99/57
[2019-11-20] MEDS: INSULIN GLARGINE 100 UNITS/ML 10 ML VIAL SQ SCH (22:49)
[2019-11-21 05:32] VITALS: BP 105/71
[2019-11-21] MEDS: INSULIN HUMULIN R 100 UNIT/ML 3ML SQ SCH ×7 (06:31→21:43)
[2019-11-21 08:00] VITALS: BP 106/64
[2019-11-21] MEDS: METHYLPREDNISOLONE SOD SUCC 40MG/ML 1ML IVP SCH ×3 (10:08→21:42)
[2019-11-21] MEDS: FAMOTIDINE 20MG TAB 20 MG TAB PO SCH ×2 (10:08→21:42)
[2019-11-21] MEDS: MIDODRINE HCL 5 MG TABLET PO SCH ×3 (10:08→21:42)
[2019-11-21] MEDS: ZINC SULFATE 220 CAPSULE PO SCH (10:09)
[2019-11-21] MEDS: ASCORBIC ACID 500 MG TAB PO SCH (10:09)
[2019-11-21] MEDS: ENOXAPARIN SODIUM 40 MG/0.4 ML SYRINGE SQ SCH (10:29)
[2019-11-21 12:00] VITALS: BP 122/86
[2019-11-21 16:00] VITALS: BP 105/64
--- NOTE | 2019-11-21 16:05 | NUR ---
RECEIVED PT AAOx4. OOB IN CHAIR. GENERALIZED WEAKNESS. VSS. ABLE TO MAKE NEEDS KNOWN. COVID+, ISOLATION PRECAUTIONS MAINTAINED. RESPIRATIONS EVEN AND UNLABORED AT REST. O2 SAT STABLE, 30L HIGH FLOW NASAL CANNULA. REQUIRED SSI COVERAGE FOR ELEVATED BLOOD GLUCOSES. GOOD APPETITE. DENIED NEEDS/PAIN. WILL CONTINUE TO MONITOR. SAFETY PRECAUTIONS IN PLACE.
[2019-11-21 20:00] VITALS: BP 107/56
[2019-11-21] MEDS: INSULIN GLARGINE 100 UNITS/ML 10 ML VIAL SQ SCH (21:44)
[2019-11-22 00:47] VITALS: BP 115/89
[2019-11-22 05:32] VITALS: BP 98/63
[2019-11-22 06:32] LABS: EOSINOPHILS % (AUTO) 0.2 % (0.0-8.0); HEMATOCRIT 40.9 % (36-48); LYMPHOCYTES % (AUTO) 5.4 % (21.0-51.0); MEAN CORPUSCULAR HEMOGLOBIN 29.7 pg (27.0-33.0); MEAN CORPUSCULAR HGB CONC 34.2 g/dL (32.0-36.0); MEAN CORPUSCULAR VOLUME 86.8 fL (79-99); MONOCYTES % (AUTO) 1.3 % (3.0-13.0); NEUTROPHILS % (AUTO) 91.8 % (40.0-77.0); PLATELET COUNT (AUTO) 64 K/uL (130-400); RED BLOOD CELL COUNT(AUTO) 4.71 MIL/uL (4.00-5.50); WHITE BLOOD COUNT (AUTO) 6.1 K/uL (4.8-10.8)
[2019-11-22] MEDS: INSULIN HUMULIN R 100 UNIT/ML 3ML SQ SCH ×7 (06:41→22:22)
[2019-11-22] MEDS: ACETAMINOPHEN 325 MG TAB PO PRN (06:51)
[2019-11-22 06:57] LABS: ALANINE AMINOTRANSFERASE 208 U/L (12-78); ASPARTATE AMINOTRANSFERASE 55 U/L (10-37); BILIRUBIN,TOTAL 0.8 mg/dL (0.2-1.0); CARBON DIOXIDE 31 mmol/L (21-32); CHLORIDE 104 mmol/L (101-111); CREATININE 0.6 mg/dL (0.5-1.5); GLOMERULAR FILTR. RATE CALC 107 mL/min (>60); GLUCOSE,RANDOM 195 mg/dL (70-105); LACTATE DEHYDROGENASE 265 U/L (81-234); POTASSIUM 4.2 mmol/L (3.5-5.1); SODIUM SERUM 139 mmol/L (136-145); TOTAL PROTEIN, SERUM 5.1 g/dL (6.0-8.3); UREA NITROGEN, BLOOD 28 mg/dL (7-18)
[2019-11-22 06:58] LABS: PLATELET MORPHOLOGY COMMENT DECREASED
[2019-11-22 07:00] LABS: CRP QUANTITATIVE < 2.00 mg/L (0.00-9.0)
[2019-11-22] MEDS: ASCORBIC ACID 500 MG TAB PO SCH (07:45)
[2019-11-22] MEDS: ZINC SULFATE 220 CAPSULE PO SCH (07:45)
[2019-11-22] MEDS: FAMOTIDINE 20MG TAB 20 MG TAB PO SCH ×2 (07:45→22:21)
[2019-11-22] MEDS: METHYLPREDNISOLONE SOD SUCC 40MG/ML 1ML IVP SCH ×3 (07:45→22:21)
[2019-11-22] MEDS: MIDODRINE HCL 5 MG TABLET PO SCH ×3 (07:45→22:21)
[2019-11-22] MEDS: ENOXAPARIN SODIUM 40 MG/0.4 ML SYRINGE SQ SCH (07:46)
[2019-11-22 08:00] VITALS: BP 105/78
--- NOTE | 2019-11-22 08:00 | NUR ---
ASSESSMENT PT IS AAOX3 DENIES CP DENIES SOB DENIES NV NO VISIBLE SIGNS OF DISTRESS NOTED, O2 VIA HIGHFLOW NC. BREATHING PATTERN IS EVEN AND UNLABORED. SITTING UPRIGHT IN BED. AM MEDS GIVEN, PT EATING BREAKFAST. CALL LIGHT WITHIN REACH.
[2019-11-22 11:00] VITALS: BP 104/61
--- NOTE | 2019-11-22 14:00 | NUR ---
STATUS AAOX3 DENIES CP DENIES SOB. ASSISTED UP TO CHAIR WITH PHYSICAL THERAPY. CALL LIGHT WITHIN REACH.
[2019-11-22 16:00] VITALS: BP 93/63
[2019-11-22 20:00] VITALS: BP 96/61
[2019-11-22] MEDS: INSULIN GLARGINE 100 UNITS/ML 10 ML VIAL SQ SCH (22:23)
[2019-11-23] VITALS: BP 114/61
[2019-11-23 04:00] VITALS: BP 118/73
[2019-11-23 06:16] LABS: BASOPHILS % (AUTO) 0.1 % (0.0-5.0); LYMPHOCYTES % (AUTO) 5.6 % (21.0-51.0); MEAN CORPUSCULAR HEMOGLOBIN 29.6 pg (27.0-33.0); MEAN CORPUSCULAR HGB CONC 34.6 g/dL (32.0-36.0); MEAN CORPUSCULAR VOLUME 85.4 fL (79-99); NEUTROPHILS % (AUTO) 91.3 % (40.0-77.0); PLATELET COUNT (AUTO) 67 K/uL (130-400); WHITE BLOOD COUNT (AUTO) 8.1 K/uL (4.8-10.8)
[2019-11-23] MEDS: INSULIN HUMULIN R 100 UNIT/ML 3ML SQ SCH ×7 (06:28→22:00)
[2019-11-23 06:33] LABS: ALANINE AMINOTRANSFERASE 168 U/L (12-78); ALBUMIN 2.2 g/dL (3.5-5.0); ASPARTATE AMINOTRANSFERASE 31 U/L (10-37); BILIRUBIN,TOTAL 0.8 mg/dL (0.2-1.0); CARBON DIOXIDE 32 mmol/L (21-32); CHLORIDE 105 mmol/L (101-111); CREATININE 0.6 mg/dL (0.5-1.5); GLOMERULAR FILTR. RATE CALC 107 mL/min (>60); GLUCOSE,RANDOM 198 mg/dL (70-105); LACTATE DEHYDROGENASE 261 U/L (81-234); POTASSIUM 4.5 mmol/L (3.5-5.1); SODIUM SERUM 140 mmol/L (136-145); TOTAL PROTEIN, SERUM 5.2 g/dL (6.0-8.3); UREA NITROGEN, BLOOD 31 mg/dL (7-18)
[2019-11-23 08:00] VITALS: BP 128/77
[2019-11-23] MEDS: ENOXAPARIN SODIUM 40 MG/0.4 ML SYRINGE SQ SCH (09:00)
[2019-11-23] MEDS: METHYLPREDNISOLONE SOD SUCC 40MG/ML 1ML IVP SCH ×3 (09:13→21:56)
[2019-11-23] MEDS: ZINC SULFATE 220 CAPSULE PO SCH (09:14)
[2019-11-23] MEDS: FAMOTIDINE 20MG TAB 20 MG TAB PO SCH ×2 (09:14→22:01)
[2019-11-23] MEDS: MIDODRINE HCL 5 MG TABLET PO SCH ×3 (09:14→22:02)
[2019-11-23] MEDS: ASCORBIC ACID 500 MG TAB PO SCH (09:14)
--- NOTE | 2019-11-23 10:20 | NUR ---
PAGED AJ WATER SOFTENER SERVICE SUPERVISOR RE; PLTS 67 ON LOVENOX OKAY TO HOLD LOVENOX FOR TODAY AND MONITOR PLTS TOMORROW.
[2019-11-23 11:00] VITALS: BP 106/66
[2019-11-23 16:00] VITALS: BP 92/67
[2019-11-23 20:42] VITALS: BP 94/62
[2019-11-23] MEDS: INSULIN GLARGINE 100 UNITS/ML 10 ML VIAL SQ SCH (21:58)
[2019-11-24 00:09] VITALS: BP 95/66
[2019-11-24 04:31] VITALS: BP 92/59
[2019-11-24] MEDS: INSULIN HUMULIN R 100 UNIT/ML 3ML SQ SCH ×7 (06:21→21:33)
[2019-11-24 07:12] LABS: BASOPHILS % (AUTO) 0.1 % (0.0-5.0); HEMATOCRIT 40.1 % (36-48); LYMPHOCYTES % (AUTO) 5.1 % (21.0-51.0); MEAN CORPUSCULAR HEMOGLOBIN 29.3 pg (27.0-33.0); MEAN CORPUSCULAR HGB CONC 33.9 g/dL (32.0-36.0); MEAN CORPUSCULAR VOLUME 86.4 fL (79-99); MONOCYTES % (AUTO) 1.6 % (3.0-13.0); NEUTROPHILS % (AUTO) 92.1 % (40.0-77.0); PLATELET COUNT (AUTO) 58 K/uL (130-400); RED BLOOD CELL COUNT(AUTO) 4.64 MIL/uL (4.00-5.50); RED CELL DISTRIBUTION WIDTH 13.1 % (11.0-15.5); WHITE BLOOD COUNT (AUTO) 8.1 K/uL (4.8-10.8)
[2019-11-24 07:35] LABS: ALANINE AMINOTRANSFERASE 148 U/L (12-78); ALBUMIN 2.1 g/dL (3.5-5.0); ASPARTATE AMINOTRANSFERASE 30 U/L (10-37); BILIRUBIN,TOTAL 0.8 mg/dL (0.2-1.0); CARBON DIOXIDE 32 mmol/L (21-32); CHLORIDE 105 mmol/L (101-111); CREATININE 0.7 mg/dL (0.5-1.5); GLOMERULAR FILTR. RATE CALC 90 mL/min (>60); GLUCOSE,RANDOM 224 mg/dL (70-105); LACTATE DEHYDROGENASE 283 U/L (81-234); POTASSIUM 4.8 mmol/L (3.5-5.1); SODIUM SERUM 139 mmol/L (136-145); TOTAL PROTEIN, SERUM 5.4 g/dL (6.0-8.3); UREA NITROGEN, BLOOD 36 mg/dL (7-18)
[2019-11-24 07:41] LABS: CRP QUANTITATIVE < 2.00 mg/L (0.00-9.0)
[2019-11-24 08:00] VITALS: BP 95/51
[2019-11-24] MEDS: ENOXAPARIN SODIUM 40 MG/0.4 ML SYRINGE SQ SCH (09:00)
[2019-11-24] MEDS: ASCORBIC ACID 500 MG TAB PO SCH (09:18)
[2019-11-24] MEDS: MIDODRINE HCL 5 MG TABLET PO SCH ×3 (09:18→21:00)
[2019-11-24] MEDS: FAMOTIDINE 20MG TAB 20 MG TAB PO SCH ×2 (09:18→21:00)
[2019-11-24] MEDS: METHYLPREDNISOLONE SOD SUCC 40MG/ML 1ML IVP SCH ×3 (09:19→21:00)
[2019-11-24] MEDS: ZINC SULFATE 220 CAPSULE PO SCH (09:19)
[2019-11-24 11:00] VITALS: BP 92/59
--- NOTE | 2019-11-24 15:28 | NUR ---
ORDER RECD FOR HOME O2 EVAL. SPOKE TO FAMILY RE PT NOTES, FAMILY STATES WOULD LIKE TO KNOW IF PATIENT IS COVID + OR NEG ON REPEAT SO THEY CAN FIGURE OUT HOW TO CARE FOR HER AND WHERE SHE WILL BE QUARANTINED. REVIEW OF CHART SHOWS RESP RATE TODAY > 20, UP TO 30, AND HR>100. ASKED RT HOLD TO HOLD ON HOME O2 EVAL UNTIL WE GET RAPID COVID BACK- IF COVID + FAMILY WOULD ENCOURAGE PATIENT TO GO TO FACILITY FOR PHYSICAL THERAPY
[2019-11-24 16:00] VITALS: BP 98/64
[2019-11-24] MEDS: INSULIN GLARGINE 100 UNITS/ML 10 ML VIAL SQ SCH (21:00)
[2019-11-24 22:24] VITALS: BP 102/68
[2019-11-25] VITALS (7 sets, daily range): BP systolic 93–105; BP diastolic 53–68
[2019-11-25 05:44] LABS: BASOPHILS % (AUTO) 0.1 % (0.0-5.0); HEMATOCRIT 39.8 % (36-48); LYMPHOCYTES % (AUTO) 5.2 % (21.0-51.0); MEAN CORPUSCULAR HEMOGLOBIN 29.3 pg (27.0-33.0); MEAN CORPUSCULAR HGB CONC 34.2 g/dL (32.0-36.0); MEAN CORPUSCULAR VOLUME 85.8 fL (79-99); MONOCYTES % (AUTO) 1.5 % (3.0-13.0); NEUTROPHILS % (AUTO) 92.1 % (40.0-77.0); PLATELET COUNT (AUTO) 58 K/uL (130-400); RED BLOOD CELL COUNT(AUTO) 4.64 MIL/uL (4.00-5.50); RED CELL DISTRIBUTION WIDTH 13.2 % (11.0-15.5); WHITE BLOOD COUNT (AUTO) 8.1 K/uL (4.8-10.8)
[2019-11-25 06:05] LABS: CREATININE 0.6 mg/dL (0.5-1.5); POTASSIUM 5.1 mmol/L (3.5-5.1)
[2019-11-25] MEDS: INSULIN HUMULIN R 100 UNIT/ML 3ML SQ SCH ×7 (07:30→22:56)
[2019-11-25] MEDS: ENOXAPARIN SODIUM 40 MG/0.4 ML SYRINGE SQ SCH (09:00)
[2019-11-25] MEDS: FAMOTIDINE 20MG TAB 20 MG TAB PO SCH ×2 (09:38→22:57)
[2019-11-25] MEDS: MIDODRINE HCL 5 MG TABLET PO SCH ×3 (09:38→22:57)
[2019-11-25] MEDS: ASCORBIC ACID 500 MG TAB PO SCH (09:38)
[2019-11-25] MEDS: ZINC SULFATE 220 CAPSULE PO SCH (09:38)
[2019-11-25] MEDS: METHYLPREDNISOLONE SOD SUCC 40MG/ML 1ML IVP SCH (09:54)
--- NOTE | 2019-11-25 15:00 | NUR ---
cm note spoke to AJ SALES ASSISTANT DISPLAYS regarding dc planning per VANGIE pt prefers for home setting. will repeat home o2 eval and determine if o2 needed. and plan is possible to home.
[2019-11-25] MEDS: INSULIN GLARGINE 100 UNITS/ML 10 ML VIAL SQ SCH (22:54)
[2019-11-25] MEDS: GUAIFENESIN-DM 200/20 MG 10 ML PO PRN (22:57)
[2019-11-26 04:01] VITALS: BP 108/71
[2019-11-26] MEDS: INSULIN HUMULIN R 100 UNIT/ML 3ML SQ SCH ×7 (07:30→21:00)
[2019-11-26 08:00] VITALS: BP 117/63
[2019-11-26] MEDS: ASCORBIC ACID 500 MG TAB PO SCH (08:19)
[2019-11-26] MEDS: ZINC SULFATE 220 CAPSULE PO SCH (08:19)
[2019-11-26] MEDS: ENOXAPARIN SODIUM 40 MG/0.4 ML SYRINGE SQ SCH (08:20)
[2019-11-26] MEDS: FAMOTIDINE 20MG TAB 20 MG TAB PO SCH ×2 (08:20→21:00)
[2019-11-26] MEDS: MIDODRINE HCL 5 MG TABLET PO SCH ×3 (08:20→21:00)
[2019-11-26] MEDS: DEXAMETHASONE 4 MG TAB PO SCH (08:21)
[2019-11-26 11:30] VITALS: BP 103/66
[2019-11-26 15:30] VITALS: BP 93/57
[2019-11-26 20:10] VITALS: BP 92/47
[2019-11-26] MEDS: INSULIN GLARGINE 100 UNITS/ML 10 ML VIAL SQ SCH (21:00)
[2019-11-26 23:50] VITALS: BP 94/50
[2019-11-26] MEDS: LACTULOSE 20 GM/30 ML UDCUP PO PRN (23:58)
[2019-11-27 04:15] VITALS: BP 105/62
[2019-11-27 06:51] LABS: BASOPHILS % (AUTO) 0.3 % (0.0-5.0); HEMATOCRIT 47.1 % (36-48); LYMPHOCYTES % (AUTO) 10.4 % (21.0-51.0); MEAN CORPUSCULAR HEMOGLOBIN 29.8 pg (27.0-33.0); MEAN CORPUSCULAR HGB CONC 34.6 g/dL (32.0-36.0); MEAN CORPUSCULAR VOLUME 86.1 fL (79-99); MONOCYTES % (AUTO) 2.9 % (3.0-13.0); NEUTROPHILS % (AUTO) 85.4 % (40.0-77.0); PLATELET COUNT (AUTO) 53 K/uL (130-400); RED BLOOD CELL COUNT(AUTO) 5.47 MIL/uL (4.00-5.50); RED CELL DISTRIBUTION WIDTH 13.3 % (11.0-15.5); WHITE BLOOD COUNT (AUTO) 7.2 K/uL (4.8-10.8)
[2019-11-27] MEDS: INSULIN HUMULIN R 100 UNIT/ML 3ML SQ SCH ×6 (07:30→16:30)
[2019-11-27 08:00] VITALS: BP 102/60
[2019-11-27 08:14] LABS: CREATININE 0.7 mg/dL (0.5-1.5); POTASSIUM 4.4 mmol/L (3.5-5.1)
[2019-11-27] MEDS: ENOXAPARIN SODIUM 40 MG/0.4 ML SYRINGE SQ SCH (09:00)
[2019-11-27] MEDS: ZINC SULFATE 220 CAPSULE PO SCH (09:45)
[2019-11-27] MEDS: ASCORBIC ACID 500 MG TAB PO SCH (09:45)
[2019-11-27] MEDS: FAMOTIDINE 20MG TAB 20 MG TAB PO SCH (09:46)
[2019-11-27] MEDS: DEXAMETHASONE 4 MG TAB PO SCH (09:46)
[2019-11-27] MEDS: MIDODRINE HCL 5 MG TABLET PO SCH ×2 (09:50→13:22)
[2019-11-27 11:30] VITALS: BP 101/63
[2019-11-27] MEDS ORDERED: ALBU8.5H8 IH (13:38)
[2019-11-27] MEDS ORDERED: LORA10TA60 PO (13:47)
[2019-11-27] MEDS ORDERED: ACET325C6 PO (13:47)
--- NOTE | 2019-11-27 18:51 | NUR ---
Patient cleared by primary team to be discharged. DC reviewed and patient verbalized understanding. IV removed. Patient taken down to car with charge nurse and tech. Accompanied by . Home O2 and concentrator given to patient.
== END 2019-11-27 18:40 | disposition home or self-care (01) | DRG 177 ==
LOC: EDH 12:41 → EDHIP 23:57 → 4CH 11-08 18:45
PROVIDERS: ADMIT Hospitalist; ATTEND Hospitalist
PROC: XW033E5 Introduction of Remdesivir Anti-infective into Peripheral Vein, Percutaneous Approach, New Technology Group 5 (ICD-10-PCS; principal; 2019-11-09)
PROC: XW13325 Transfusion of Convalescent Plasma (Nonautologous) into Peripheral Vein, Percutaneous Approach, New Technology Group 5 (ICD-10-PCS; 2019-11-09)
PROC: 5A09357 Assistance with Respiratory Ventilation, Less than 24 Consecutive Hours, Continuous Positive Airway Pressure (ICD-10-PCS; 2019-11-09)
PROC: 5A09357 Assistance with Respiratory Ventilation, Less than 24 Consecutive Hours, Continuous Positive Airway Pressure (ICD-10-PCS; 2019-11-10)
PROC: 5A09357 Assistance with Respiratory Ventilation, Less than 24 Consecutive Hours, Continuous Positive Airway Pressure (ICD-10-PCS; 2019-11-11)
DX: U07.1 COVID-19 (principal); J96.01 Acute respiratory failure with hypoxia; J12.89 Other viral pneumonia; N39.0 Urinary tract infection, site not specified; M62.82 Rhabdomyolysis; Z68.43 Body mass index [BMI] 50.0-59.9, adult; E66.01 Morbid (severe) obesity due to excess calories; E87.6 Hypokalemia; R73.03 Prediabetes; Z90.710 Acquired absence of both cervix and uterus
CPT/HCPCS: 36415; 36430; 36600; 71045; 71275; 80048; 80053; 81001; 82550; 82728; 82803; 82948; 83036; 83605; 83615; 83874; 84145; 84484; 85025; 85027; 85378; 85610; 85730; 86140; 86900; 86901; 86927; 87040; 87088; 87804; 93005; 94760; 97039; G0378; J0456; J0696; J1650; J1815; J2060; J2405; J2920; J2930; J3490; J7030; J7040; J7050; J8540; P9017; Q9967; U0003

== ENCOUNTER → 2020-04-10 | Outpatient (CLI) | payer OTHER ==
[~2020-04-10] MED LIST: ACET325C6 PO; ALBU8.5H8 IH; LORA10TA60 PO
== END | disposition home or self-care (01) ==
LOC: RAH 11:15
PROVIDERS: ATTEND Internal Medicine
DX: M25.512 Pain in left shoulder (principal)
CPT/HCPCS: 73030; 73060

== ENCOUNTER 2020-06-04 06:54 | Day surgery (SDC) | payer BC ==
[2020-05-30 12:53] LABS: BASOPHILS % (AUTO) 0.6 % (0.0-5.0); EOSINOPHILS % (AUTO) 1.9 % (0.0-8.0); HEMATOCRIT 40.9 % (36-48); LYMPHOCYTES % (AUTO) 29.2 % (21.0-51.0); MEAN CORPUSCULAR HGB CONC 33.5 g/dL (32.0-36.0); MEAN CORPUSCULAR VOLUME 86.7 fL (79-99); MONOCYTES % (AUTO) 4.5 % (3.0-13.0); NEUTROPHILS % (AUTO) 63.4 % (40.0-77.0); PLATELET COUNT (AUTO) 143 K/uL (130-400); RED BLOOD CELL COUNT(AUTO) 4.72 MIL/uL (4.00-5.50); RED CELL DISTRIBUTION WIDTH 13.9 % (11.0-15.5); WHITE BLOOD COUNT (AUTO) 5.1 K/uL (4.8-10.8)
[2020-05-30 13:09] LABS: CREATININE 0.8 mg/dL (0.5-1.5); POTASSIUM 3.9 mmol/L (3.5-5.1)
[2020-06-04] VITALS (17 sets, daily range): BP systolic 96–134; BP diastolic 40–86
[~2020-06-04] VITALS: Ht 162.6 cm; Wt 107.2 kg
[~2020-06-04 06:54] MED LIST changes: +ACET1TAB25 PO; -ACET325C6 PO; -ALBU8.5H8 IH; +ASCO500C18 PO; +CEFAZOLIN SODIUM 1 GM VIAL IVP SCH; -LORA10TA60 PO; +MAGN400T40 PO; +MULT-1192 PO; +MV-M1TAB20 PO; +ZINC50TA64 PO
[2020-06-04] MEDS ORDERED: SUCCINYLCHOLINE CHLORIDE 20 MG/ML 10 ML VIAL ONE (07:59)
[2020-06-04] MEDS ORDERED: MIDAZOLAM HCL 1 MG/ML 2ML VIAL ONE (07:59)
[2020-06-04] MEDS ORDERED: LIDOCAINE PF 100MG/5ML (2%) SYRINGE 5ML ONE (07:59)
[2020-06-04] MEDS ORDERED: DEXAMETHASONE SOD PHOSPHATE 10MG/ML 1ML VIAL ONE (07:59)
[2020-06-04] MEDS ORDERED: ONDANSETRON 4MG INJ ONE (08:00)
[2020-06-04] MEDS ORDERED: PROPOFOL 10 MG/ML 20ML VIAL IV ONE (08:00)
[2020-06-04] MEDS ORDERED: GLYCOPYRROLATE 1 MG/5 ML SYRINGE ONE (08:00)
[2020-06-04] MEDS ORDERED: FENTANYL CITRATE PF 50 MCG/1 ML 2ML VIAL ONE ×2 (08:01→08:25)
[2020-06-04] MEDS ORDERED: ROCURONIUM 10MG/1ML SYR 10 MG/ML ML ONE (08:01)
[2020-06-04] MEDS ORDERED: NEOSTIGMINE 5MG/5ML SYR IV ONE (08:01)
[2020-06-04] MEDS ORDERED: ROPIVACAINE 0.5% 5MG/ML 30ML IJ ONE (08:03)
[2020-06-04] MEDS ORDERED: LACTATED RINGERS 1000ML 1,000 ML IV ONE (08:26)
[2020-06-04] MEDS ORDERED: SUGAMMADEX SODIUM 200 MG/2 ML VIAL IV ONE (10:59)
[2020-06-04] MEDS ORDERED: NAPR-1180 PO (11:28)
[2020-06-04] MEDS ORDERED: HYDR-4060 PO (11:28)
== END 2020-06-04 13:15 | disposition home or self-care (01) ==
LOC: DAH 06:54
PROVIDERS: ATTEND Orthopaedic Surgery
DX: M75.02 Adhesive capsulitis of left shoulder (principal); Z20.822 Contact with and (suspected) exposure to COVID-19; M25.512 Pain in left shoulder; M25.619 Stiffness of unspecified shoulder, not elsewhere classified; G89.29 Other chronic pain; E66.01 Morbid (severe) obesity due to excess calories; D64.9 Anemia, unspecified; Z90.710 Acquired absence of both cervix and uterus; Z90.49 Acquired absence of other specified parts of digestive tract; Z98.890 Other specified postprocedural states; Z79.899 Other long term (current) drug therapy; Z83.3 Family history of diabetes mellitus; Z68.41 Body mass index [BMI] 40.0-44.9, adult
CPT/HCPCS: 20610; 23700; 36415; 64415; 76942; 80048; 85025; A4215 ×2; A4221; A4222; A4223; A4600; A4649 ×3; A4663; A4930 ×2; A5120; A6204; C9803; G0168; J0330; J0690; J1030; J1100; J2001; J2250; J2405; J2704; J2710; J2795; J3010 ×2; J3490; J7030; J7120; U0003

== ENCOUNTER 2020-07-19 20:01 | Emergency (ER) | payer BC ==
[~2020-07-19 20:01] MED LIST changes: -ACET1TAB25 PO; -CEFAZOLIN SODIUM 1 GM VIAL IVP SCH; +HYDR-4060 PO; +NAPR-1180 PO
[2020-07-19] MEDS ORDERED: KETOROLAC TROMETHAMINE 15MG/ML ONE (20:34)
[2020-07-19] MEDS ORDERED: HYDROCODONE/ACETAMINOPHEN 5/325 MG TAB ONE (20:35)
== END 2020-07-19 22:43 | disposition home or self-care (01) ==
LOC: EDH 20:01
DX: S42.92XA Fracture of left shoulder girdle, part unspecified, initial encounter for closed fracture (principal); S62.92XA Unspecified fracture of left hand, initial encounter for closed fracture; Z90.49 Acquired absence of other specified parts of digestive tract; Z90.710 Acquired absence of both cervix and uterus; W18.39XA Other fall on same level, initial encounter; Y93.89 Activity, other specified; Y92.098 Other place in other non-institutional residence as the place of occurrence of the external cause; Y99.8 Other external cause status
CPT/HCPCS: 70450; 72125; 73000; 73060; 73090; 96372; 99285; J1885

== ENCOUNTER → 2020-08-31 | Outpatient (CLI) | payer BC | END | disposition home or self-care (01) | LOC: RAH 11:26 | PROVIDERS: ATTEND Nurse Practitioner Family | DX: M79.89 Other specified soft tissue disorders (principal); M25.561 Pain in right knee | CPT/HCPCS: 73562 ==

== ENCOUNTER → 2020-12-07 | Outpatient (CLI) | payer BC | END | disposition home or self-care (01) | LOC: RAH 07:55 | PROVIDERS: ATTEND Nurse Practitioner Family | DX: R94.5 Abnormal results of liver function studies (principal); R79.89 Other specified abnormal findings of blood chemistry; Z90.49 Acquired absence of other specified parts of digestive tract | CPT/HCPCS: 76705 ==

== ENCOUNTER → 2023-07-06 | Outpatient (CLI) | payer OTHER | END | disposition home or self-care (01) | LOC: RAH 09:15 | PROVIDERS: ATTEND Internal Medicine Hematology & Oncology | DX: K74.60 Unspecified cirrhosis of liver (principal); R94.5 Abnormal results of liver function studies; D69.6 Thrombocytopenia, unspecified; Z90.49 Acquired absence of other specified parts of digestive tract | CPT/HCPCS: 76700 ==

== ENCOUNTER → 2023-10-30 | Outpatient (CLI) | payer OTHER | END | disposition home or self-care (01) | LOC: RAH 09:34 | PROVIDERS: ATTEND Obstetrics & Gynecology | DX: Z12.31 Encounter for screening mammogram for malignant neoplasm of breast (principal) | CPT/HCPCS: 77067 ==

== ENCOUNTER 2023-12-17 02:41 | Emergency (ER) | payer OTHER ==
[~2023-12-17] VITALS: Ht 162.6 cm; Wt 97.1 kg
[2023-12-17 03:17] LABS: BASOPHILS # (AUTO) 0.03 K/uL (0.00-0.20); BASOPHILS % (AUTO) 0.7 % (0.0-5.0); EOSINOPHILS % (AUTO) 2.3 % (0.0-8.0); HEMATOCRIT 40.7 % (36-48); IMMATURE GRANULOCYTE ABSOLUTE 0.01 K/uL (0-1); LYMPHOCYTES # (AUTO) 1.5 K/uL (1.0-4.8); LYMPHOCYTES % (AUTO) 33.7 % (21.0-51.0); MEAN CORPUSCULAR HEMOGLOBIN 28.9 pg (27.0-33.0); MEAN CORPUSCULAR HGB CONC 34.4 g/dL (32.0-36.0); MEAN CORPUSCULAR VOLUME 84.1 fL (79-99); MONOCYTES # (AUTO) 0.3 K/uL (0.1-1.0); MONOCYTES % (AUTO) 6.3 % (3.0-13.0); NEUTROPHILS # (AUTO) 2.4 K/uL (1.8-7.7); NEUTROPHILS % (AUTO) 56.8 % (40.0-77.0); PLATELET COUNT (AUTO) 147 K/uL (130-400); RED BLOOD CELL COUNT(AUTO) 4.84 MIL/uL (4.00-5.50); RED CELL DISTRIBUTION WIDTH 14.1 % (11.0-15.5); WHITE BLOOD COUNT (AUTO) 4.3 K/uL (4.8-10.8)
[2023-12-17 03:24] LABS: CREATININE 0.9 mg/dL (0.5-1.0); POTASSIUM 3.4 mmol/L (3.5-5.1)
[2023-12-17] MEDS: 0.9%NACL 1000ML 1,000 ML IV ONE (03:36)
[2023-12-17] MEDS: KETOROLAC 15MG/ML VIAL (15MG/ML) IV ONE (03:36)
[2023-12-17 03:54] LABS: APPEARANCE,URINE CLEAR (CLEAR); BILIRUBIN,URINE NEGATIVE (NEGATIVE); COLOR,URINE COLORLESS (YELLOW); GLUCOSE, URINE (UA) 70 mg/dL (NEGATIVE); KETONES,URINE NEGATIVE (NEGATIVE); LEUKOCYTE ESTERASE ,URINE 75 Leu/uL (NEGATIVE); NITRATE,URINE NEGATIVE (NEGATIVE); OCCULT BLOOD,URINE NEGATIVE (NEGATIVE); PH,URINE 5.5 (5.0-8.0); PROTEIN,URINE NEGATIVE (NEGATIVE); UROBILINOGEN,URINE 0.2 mg/dL (0.2-1.0)
[2023-12-17 03:56] LABS: ADD UA MICROSCOPIC YES
[2023-12-17 03:57] LABS: BACTERIA,URINE RARE /HPF (None Seen); MUCUS,URINE RARE LPF (None Seen); RBC,URINE 0-1 /HPF (0-1); SQUAMOUS EPITHELIAL CELL,UR RARE /HPF (0-2)
[2023-12-17 04:09] LABS: B-TYPE NATRIURETIC PEPTIDE 57 pg/mL (0-100)
[2023-12-17] MEDS: cefTRIAXone 1G VIAL IVPB ONE (05:12)
[2023-12-17 06:42] VITALS: BP 130/77; PULSE 78; RESP 18; O2SAT 96
[2023-12-17] MEDS ORDERED: KETO10 PO (06:59)
== END 2023-12-17 07:04 | disposition home or self-care (01) ==
LOC: EDH 02:41
DX: R51.9 Headache, unspecified (principal); I10 Essential (primary) hypertension; E11.9 Type 2 diabetes mellitus without complications; M26.649 Arthritis of unspecified temporomandibular joint; Z79.899 Other long term (current) drug therapy
CPT/HCPCS: 99285; 96374; 70450; 71045; 96361; 96375; 82550; 84484; 80048; 83880; 85025; 87086 ×2; 87186; 81001; 36415; 93005; J7030; J0696; J1885; 96365

== ENCOUNTER 2025-02-28 17:26 | Observation (INO) | payer OTHER ==
[~2025-02-28] VITALS: Ht 157.5 cm; Wt 90.4 kg
[~2025-02-28 17:26] MED LIST changes: +KETO10 PO
[2025-02-28 17:53] LABS: IMMATURE GRANULOCYTE ABSOLUTE 0.01 K/uL (0-1); NUCLEATED RED BLOOD CELLS 0.0 % (0.0-0.19); PLATELET COUNT (AUTO) 151 K/uL (130-400); RED BLOOD CELL COUNT(AUTO) 4.64 MIL/uL (4.00-5.50); RED CELL DISTRIBUTION WIDTH 14.8 % (11.0-15.5); WHITE BLOOD COUNT (AUTO) 3.3 K/uL (4.8-10.8)
[2025-02-28 18:00] LABS: CREATININE 0.8 mg/dL (0.5-1.0); GLOMERULAR FILTR. RATE CALC 80.0 mL/min (>90); GLUCOSE,RANDOM 164.0 mg/dL (70-105); SODIUM SERUM 143.0 mmol/L (136-145); UREA NITROGEN, BLOOD 14.0 mg/dL (7-18)
[2025-02-28 18:03] LABS: INR 1.19 (0.85-1.15)
--- NOTE | 2025-02-28 19:05 | EKG ---
[facility] Test Date: 2025-02-28 Test Time: 17:37:09 Pat Name: MARTA ESPINOSA Department: ED Room: 301 Gender: F Nursing Instructor: [id number] : [id number] Requested By: SARAH MISTRY Order Number: [id number] Reading MD: Lilliana Alexander Measurements Intervals [place] Rate: 75 P: 21 UT: 205 QRS: -19 QRSD: 101 T: -17 QT: 460 QTc: 514 Interpretive Statements Sinus rhythm Probable left ventricular hypertrophy Prolonged QT interval Compared to ECG 12/17/2023 03:17:54 Prolonged QT interval now present Electronically Signed On 03-02-2025 12:36:18 ENGRAVER HAND HARD METALS by Lilliana Alexander Please click the below link to view image of tracing.
--- NOTE | 2025-02-28 19:45 | HMCIMG ---
EXAM: CR Chest, 1 View. CLINICAL HISTORY: CP COMPARISON: None provided. FINDINGS: LUNGS: No active infiltrate PLEURAL SPACES: No evidence of pleural effusion or pneumothorax. MEDIASTINUM: Cardiac silhouette prominent BONES: No aggressive appearing osseous lesion seen. IMPRESSION: 1. Cardiac silhouette prominent 2. No active infiltrate /[place]
[2025-02-28] MEDS: ASPIRIN 325MG TAB PO ONE (20:46)
--- NOTE | 2025-02-28 20:51 | ERN ---
General Chief Complaint: Chest Pain Stated Complaint: CHEST TINGLING Time Seen by MD: 17:30 Time Seen by Midlevel: 17:30 Source: patient History of Present Illness Initial Comments 70-year-old female presents to the emergency department for evaluation of left- sided chest pressure that started earlier today and progressively worsened. Allergies: Coded Allergies: No Known Allergies (Unverified Allergy, Unknown, 12/10/17) Home Meds Active Scripts Ketorolac Tromethamine (Toradol) 10 Mg Tab, 10 MG PO QID for pain for 5 Days, #20 TAB 0 Refills Prov:HADLEY HAMMOND MD 12/17/23 Hydrocodone/Acetaminophen (Hydrocodon-Acetaminophen 5-325) 1 Each Tablet, 1-2 EACH PO Q6HPRN PRN for pain, #56 TAB Prov:SALVADOR CLAYTON MD 06/04/20 Naproxen (Naprosyn) 500 Mg Tablet, 500 MG PO BIDAC, #60 TAB 1 Refill Prov:SALVADOR CLAYTON MD 06/04/20 Reported Medications Ascorbic Acid (Vitamin C) 500 Mg Capsule, 500 MG PO DAILY, CAP 06/01/20 Magnesium Oxide (Magnesium) 400 Mg Tablet, 400 MG PO DAILY, TAB 06/01/20 Mv-Mn/Iron/FA/Herbal Cmplx#190 (Vitamin D3 Complete Caplet) 1 Each Tablet, 1 EACH PO DAILY, TAB 06/01/20 Zinc Amino Acid Chelate (Zinc) 50 Mg Tablet, 50 MG PO DAILY, TAB 06/01/20 Multivitamin (Multi-Vitamin Daily) 1 Each Tablet, 1 EACH PO DAILY, TAB 06/01/20 Past Medical History Past Medical History: Diabetes-Type II Past Surgical History: None Family History Family History: Negative Social History Social History: Negative Female( History) History: Not Applicable ROS Dictation CONSTITUTIONAL: Negative except for HPI HEAD/FACE: Negative except for HPI EENT: Negative except for HPI RESPIRATORY: Negative except for HPI GASTROINTESTINAL/ABDOMINAL: Negative except for HPI GENITOURINARY: Negative except for HPI MUSCULOSKELETAL: Negative except for HPI INTEGUMENTARY: Negative except for HPI NEUROLOGICAL/PSYCH: Negative except for HPI HEMATOLOGIC/LYMPHATIC: Negative except for HPI All Systems Negative, Except as noted above. 13 point review of systems assessed and all negative except for above. Physical Exam Physical Exam Dictation Vital Signs reviewed General Appearance: Alert, oriented x 3, no acute distress, well developed, nourished. Head and Face: non-traumatic. Eyes: PERRL, pink conjunctivas, eyelid no trauma, anterior chamber with arcus senilis. Ears: Pinnas intact and no signs of trauma or erythema ear canals clear and no discharge TM no erythema Nose: No discharge, no bleeding. Oropharynx: Mouth normal, tongue pink, pharynx clear,no erythema, tonsils no exudates, no abscesses noted, mucous membrane moist Neck: Supple, non-tender, no thyromegaly, no masses, no JVD, no bruits Breast:Deferred Chest:No tenderness, no crepitus, no paradoxical movement, no retractions Lungs:Clear, well-ventilated, symmetric, no rales, no wheezing, no rhonchi, no stridor, good breath sounds bilaterally Heart: Regular rate, regular rhythm, no murmur, no gallops Vascular: no peripheral edema, Abdomen: Soft, positive bowel sounds, nondistended, no guarding, nontender, no rebound, no masses no hepatomegaly, no splenomegaly, no Mares's sign, no hernias. Rectal: Deferred Genital: Deferred Neurological: Normal speech, motor function intact, sensory function intact Musculoskeletal: Neck nontender, full range of motion, back nontender, full range of motion, Extremities: nontender, full range of motion Skin: Color pink, dry, no turgor, no rash, no lacerations, no abrasions, no contusions. Lymphatic: Deferred Results Laboratory and Microbiology Lab and Micro Result Laboratory Tests Test 02/28/25 17:45 02/28/25 19:48 White Blood Count 3.3 K/uL (4.8-10.8) L Red Blood Count 4.64 MIL/uL (4.00-5.50) Hemoglobin 13.4 g/dL (12.0-16.0) Hematocrit 39.6 % (36-48) Mean Corpuscular Volume 85.3 fL (79-99) Mean Corpuscular Hemoglobin 28.9 pg (27.0-33.0) Mean Corpuscular Hemoglobin Concent 33.8 g/dL (32.0-36.0) Red Cell Distribution Width 14.8 % (11.0-15.5) Platelet Count 151 K/uL (130-400) Mean Platelet Volume 11.1 fL (7.5-10.5) H Immature Granulocyte % (Auto) 0.3 % (0-1) Neutrophils (%) (Auto) 55.5 % (40.0-77.0) Lymphocytes (%) (Auto) 34.2 % (21.0-51.0) Monocytes (%) (Auto) 5.8 % (3.0-13.0) Eosinophils (%) (Auto) 3.3 % (0.0-8.0) Basophils (%) (Auto) 0.9 % (0.0-5.0) Neutrophils # (Auto) 1.8 K/uL (1.8-7.7) Lymphocytes # (Auto) 1.1 K/uL (1.0-4.8) Monocytes # (Auto) 0.2 K/uL (0.1-1.0) Eosinophils # (Auto) 0.11 K/uL (0.00-0.70) Basophils # (Auto) 0.03 K/uL (0.00-0.20) Absolute Immature Granulocyte (auto 0.01 K/uL (0-1) Nucleated Red Blood Cells 0.0 % (0.0-0.19) Prothrombin Time 12.4 SEC (9.6-11.6) H Prothromb Time International Ratio 1.19 (0.85-1.15) H Activated Partial Thromboplast Time 25.4 SEC (26.3-35.5) L Sodium Level 143 mmol/L (136-145) Potassium Level 3.5 mmol/L (3.5-5.1) Chloride Level 107 mmol/L (101-111) Carbon Dioxide Level 29 mmol/L (21-32) Blood Urea Nitrogen 14 mg/dL (7-18) Creatinine 0.8 mg/dL (0.5-1.0) Glomerular Filtration Rate Calc 80 mL/min (>90) Random Glucose 164 mg/dL (70-105) H Total Calcium 9.1 mg/dL (8.5-10.1) Magnesium Level 1.80 mg/dL (1.80-2.40) Troponin I High Sensitivity 67 ng/L (4-50) *H 65 ng/L (4-50) *H B-Type Natriuretic Peptide 45 pg/mL (0-100) Labs Reviewed?: Yes MDM MDM: Differential diagnosis: Acute coronary syndrome, dehydration, electrolyte abnormality Rationale: Tests considered and ordered secondary to shared decision making include: Previous outside records reviewed: Old ER visits. Risk of complication and/or morbidity or mortality of patient management: None Medications-Per medication reconciliation Need for hospitalization: Patient does meet criteria for hospitalization. Need for emergency major/minor surgery: No There are no social concerns with this patient. Prescription drug management Prescriptions will include symptomatic care Patient's prior external medical records from other ER visits were reviewed by me as indicated. Prior testing and results from previous visits were reviewed. Prior tests were taken into account with medical decision making and resource utilization, independent historian/historians were used to obtain complete medical history. I independently interpreted the test that were performed, results were reviewed by me and considered findings on radiology if ordered. Medical management and examination interpretation discussions were had by me with other qualified healthcare professionals as indicated for the patient's care. ED Course Orders Procedure Category Date Status Time 12 Lead Ekg Tracing- EKG 02/28/25 Complete Technical 17:34 Cbc With Differential LAB 02/28/25 Complete 17:34 Basic Metabolic Panel LAB 02/28/25 Complete 17:34 B-Type Natriuretic LAB 02/28/25 Complete Peptide 17:34 Magnesium LAB 02/28/25 Complete 17:34 Pt And Ptt LAB 02/28/25 Complete 17:34 Troponin I High LAB 02/28/25 Complete Sensitivity 17:34 Chest 1vw RAD 02/28/25 Resulted 17:34 Aspirin 325mg Tab PHA 02/28/25 Complete (Aspirin 325mg Tab) 18:30 12 Lead Ekg Tracing- EKG 02/28/25 Logged Technical 18:30 Troponin I High LAB 02/28/25 Complete Sensitivity 18:30 Current Medications Medications (Trade) Dose Ordered Sig/Brianne Route PRN Reason Start Time Stop Time Status Last Admin Dose Admin Aspirin (Aspirin 325mg Tab) 325 mg ONCE ONCE PO 02/28/25 18:30 02/28/25 18:31 DC Vital Signs Date Time Temp Pulse Resp B/P (MAP) Pulse Ox O2 Delivery O2 Flow Rate FiO2 02/28/25 17:27 97.9 74 16 136/73 98 Room Air 0 DX & DISP Disposition: Inpatient Departure Impression: Primary Impression: Chest pain Additional Impression: Elevated troponin Condition: Stable Referrals: KEYUR MA MD (PCP) I have reviewed the case, and I agree with, Diagnosis and Plan I performed the substantive portion of the visit. I have reviewed and personally made and approve the management plan that is documented in the note by myself or the ZE. I acknowledge for responsibility for the patient's management plan. SARAH MISTRY PAC Feb 28, 2025 20:51
--- NOTE | 2025-02-28 21:13 | NUR ---
JESSICA HUMAN RESOURCES TECHNICIAN AT BEDSIDE.
--- NOTE | 2025-02-28 22:54 | HP ---
[facility] Date of Service: Feb 28, 2025 Time of Service: 22:54 PCP: Mika Diaz HISTORY OF PRESENT ILLNESS: This is a 70-year-old female past medical history of diabetes surgical history of hysterectomy, left knee surgery and cholecystectomy presents to the ED for complaints of left-sided chest pain started earlier today.Patient reports initially pain feels like it is tingling in sensation and and tolerable as the day progressed chest pain intensity is getting worse associated with neck pain , mild headache and mild shortness of breath.Patient reports she is overwhelmed with her life right now,she is building a house and she kept thinking about the expenses and she is also worried about her family and her son in law's niece got shot recently and she is very much worried about him as well.Patient was teary eyed as she was verbalizing her problems and states she is depressed but no thoughts of harming herself or others. Seen and examined patient in the ER awake,alert and oriented,patient states ch est pain has subsided. Denies fever, chills, cough, palpitation , diaphoresis, nausea and vomiting. Latest vital signs temperature 97.9, heart rate 66, blood pressure 130/61 saturation 96% on room air. CBC unremarkable. Random glucose 164, BNP 45 troponin 67, 65 to 59. Rest of the chemistries normal. Chest x-ray result revealed cardiac silhouette prominent no active infiltrate. EKG result revealed sinus rhythm probable left ventricular hypertrophy prolonged QT interval no previous ECG available for comparison. While in the ER patient received aspirin 325 mg p.o. fruit packer was consulted and and due to cardiac stress test in the morning. With the patient for further medical management. REVIEW OF SYSTEMS CONSTITUTIONAL: Denies fevers, chills, or night sweats. No unintentional weight loss reported. NEUROLOGICAL: Complain of mild headache and neck pain Denies amaurosis fugax, motor weakness, sensory deficit, vertigo/spinning sensation, gait abnormalities, or tremors. ENT: No hearing loss, otalgia, otorrhea, rhinitis, rhinorrhea, hoarseness, or sore throat. CARDIOVASCULAR: Complain of chest pain Denies dyspnea on exertion, orthopnea, paroxysmal nocturnal dyspnea, palpitations, life-threatening arrhythmias, claudication. PULMONARY: Complained of mild shortness of breaths Denies cough, phlegm/sputum, hemoptysis, pleuritic chest pain. SLEEP: Denies morning headaches, daytime somnolence or napping. Denies difficulty falling asleep, staying asleep, waking from sleep. Denies knowledge of snoring. GASTROINTESTINAL: Denies any type of dysphagia to either liquids or solids. Denies nausea, vomiting, pyrosis, early satiety, abdominal pain, diarrhea, constipation, or changes in stool consistency or caliber. Denies coffee-ground emesis, hematemesis, hematochezia, or melanotic stools. GENITOURINARY: Denies frequency, urgency, nocturia, hematuria or incontinence (Storage/Irritative symptoms.) Low urinary stream, straining to void, urinary intermittency or hesitancy, splitting of the voiding stream, terminal dribbling. ENDOCRINOLOGIC: Denies polyuria, polydipsia, polyphagia or heat/cold intolerances. HEMATOLOGIC: Denies thrombophilia/previous clots, or coagulopathy/bleeding disorders. ONCOLOGIC: Denies personal history of malignancy. DERMATOLOGIC: Denies rashes or pruritus. PSYCHIATRIC: Denies any suicidal or homicidal ideation. Denies hallucinations. PAST MEDICAL HISTORY: [ Diabetes and obesity] PAST SURGICAL HISTORY: [ Hysterectomy, left knee surgery and cholecystectomy ] PAST SOCIAL HISTORY: [ Patient lives with . Patient denies alcohol tobacco and recreational drug use. ] FAMILY HISTORY: [Hypertension, depression, renal disease, diabetes, cardiovascular disease, an xiety disorder and Alzheimer's disease ] Coded Allergies: No Known Allergies (Unverified Allergy, Unknown, 12/10/17) PHYSICAL EXAM GENERAL APPEARANCE: The patient is awake, alert, and oriented, in no acute cardiopulmonary distress. NEUROLOGICAL: Cranial nerves II-XII grossly intact. Motor is 5/5 in bilateral upper and lower extremities proximal to distal. No sensory deficits. HEENT: Face is symmetric. Pupils are equal and reactive. Extraocular movements are intact. NECK: Supple. No JVD. No thyromegaly. No submental, submandibular, pre- /postauricular, occipital or supraclavicular lymphadenopathy. CHEST: Normal chest expansion. No Telemetry. LUNGS: Absence of any rales, rhonchi or any wheezing. CARDIOVASCULAR: Regular. S1 and S2 normal. No appreciable rubs, murmurs or gallops. ABDOMEN: Soft, nontender, and nondistended. There is no rebound, voluntary guarding, or rigidity. : Deferred. No Johnson. EXTREMITIES: Non-edematous and not cyanotic. No clubbing. Good capillary refill. SKIN: No skin breakdown. Vital Sign (Last 24 Hours) 02/28/25 02/28/25 17:27 22:35 Temp 97.9 Pulse 60 Resp 18 B/P (MAP) 145/72 Pulse Ox 96 O2 Delivery Room Air* O2 Flow Rate 0 FiO2 21 LABS: Laboratory: Test 02/28/25 19:48 02/28/25 17:45 Range/Units Troponin I High Sensitivity 65 *H 4-50 ng/L White Blood Count 3.3 L 4.8-10.8 K/uL Red Blood Count 4.64 4.00-5.50 MIL/uL Hemoglobin 13.4 12.0-16.0 g/dL Hematocrit 39.6 36-48 % Mean Corpuscular Volume 85.3 79-99 fL Mean Corpuscular Hemoglobin 28.9 27.0-33.0 pg Mean Corpuscular Hemoglobin Concent 33.8 32.0-36.0 g/dL Red Cell Distribution Width 14.8 11.0-15.5 % Platelet Count 151 130-400 K/uL Mean Platelet Volume 11.1 H 7.5-10.5 fL Immature Granulocyte % (Auto) 0.3 0-1 % Neutrophils (%) (Auto) 55.5 40.0-77.0 % Lymphocytes (%) (Auto) 34.2 21.0-51.0 % Monocytes (%) (Auto) 5.8 3.0-13.0 % Eosinophils (%) (Auto) 3.3 0.0-8.0 % Basophils (%) (Auto) 0.9 0.0-5.0 % Neutrophils # (Auto) 1.8 1.8-7.7 K/uL Lymphocytes # (Auto) 1.1 1.0-4.8 K/uL Monocytes # (Auto) 0.2 0.1-1.0 K/uL Eosinophils # (Auto) 0.11 0.00-0.70 K/uL Basophils # (Auto) 0.03 0.00-0.20 K/uL Absolute Immature Granulocyte (auto 0.01 0-1 K/uL Nucleated Red Blood Cells 0.0 0.0-0.19 % Prothrombin Time 12.4 H 9.6-11.6 SEC Prothromb Time International Ratio 1.19 H 0.85-1.15 Activated Partial Thromboplast Time 25.4 L 26.3-35.5 SEC Sodium Level 143 136-145 mmol/L Potassium Level 3.5 3.5-5.1 mmol/L Chloride Level 107 101-111 mmol/L Carbon Dioxide Level 29 21-32 mmol/L Blood Urea Nitrogen 14 7-18 mg/dL Creatinine 0.8 0.5-1.0 mg/dL Glomerular Filtration Rate Calc 80 >90 mL/min Random Glucose 164 H 70-105 mg/dL Total Calcium 9.1 8.5-10.1 mg/dL Magnesium Level 1.80 1.80-2.40 mg/dL B-Type Natriuretic Peptide 45 0-100 pg/mL DIAGNOSTICS / RADIOLOGY: [ ] ASSESSMENT: Chest pain rule out ACS POA Elevated troponin POA Uncontrolled diabetes POA PLAN: We will admit patient in medical telemetry We will start aspirin 81 mg p.o. daily We will start on heart healthy diet We will start on famotidine 20 mg p.o. b.i.d. for GI prophylaxis We will replace electrolytes as needed per protocol We will start on insulin sliding scale AC & HS with hypoglycemia protocol We will add prn medication for fever,pain,cough , nausea and vomiting We will reconcile home meds once medlist available We will request for echocardiogram We will seek Cardiology consultation We will trend troponin q.6 x3 We will request labs in am Further orders to follow depending on above results Case discussed with attending physician and came up with above treatment and plan of care. ADVANCED CARE PLANNING 1. Which of the following were discussed? Hospice Care - No Therapeutic options - Yes Advance Directives - No Other discussions - 2. Discussed with who? Patient 3. Voluntary nature of this service was explained to the patient? Yes 4. Amount of time spent - ____24 min___ 5. Reviewed by Physician? (if this service was performed by NPP) Yes Patient seen and examined by me. Agree with note by CUT OFF WORKER SEE ADDITIONAL ORDERS PER CHART DISCUSSED WITH NURSING STAFF VALORIE LOPEZP Feb 28, 2025 22:54
[2025-02-28] MEDS ORDERED: DEXTROSE 50%-WATER 50 ML DISP.SYRIN IV PRN (23:00)
[2025-02-28] MEDS ORDERED: GLUCAGON 1MG KIT 1 MG ML IM PRN (23:00)
--- NOTE | 2025-02-28 23:05 | NUR ---
CASTING CHIPPER AT BEDSIDE, DR DIAMOND.
--- NOTE | 2025-03-01 05:06 | EKG ---
[facility] Test Date: 2025-02-28 Test Time: 19:26:30 Pat Name: MARTA ESPINOSA Department: [facility] Room: 301 Gender: F Nut Feeder: [id number] : 1955 Requested By: SARAH MISTRY Order Number: [id number] Reading MD: Lilliana Alexander Measurements Intervals [place] Rate: 61 P: 32 GA: 225 QRS: -21 QRSD: 101 T: -11 QT: 489 QTc: 495 Interpretive Statements Sinus rhythm Prolonged GA interval Left ventricular hypertrophy Compared to ECG 02/28/2025 17:37:09 First degree AV block now present Prolonged QT interval no longer present Electronically Signed On 03-02-2025 12:35:53 OPTO MECHANICAL TECHNICIAN by Lilliana Alexander Please click the below link to view image of tracing.
--- NOTE | 2025-03-01 07:16 | CONS ---
CONSULT NOTE: CARDIOLOGY Reason for consult: Chest pain HPI/story at presentation: This is a pleasant 70-year-old female with past medical history of depression with complaints of atypical chest discomfort to the emergency room. Was found to have EKG changes and mild elevated troponins of liver, cardiology was consulted for further evaluation and management Past medical history: See below Allergies, Meds See chart Review of systems Review of Systems Constitutional: Negative for chills and fever. HENT: Negative for ear discharge and ear pain. Eyes: Negative for photophobia and discharge. Respiratory: Negative for cough, sputum production and stridor. Cardiovascular: Negative for chest pain and palpitations. Gastrointestinal: Negative for diarrhea and vomiting. Genitourinary: Negative for frequency. Musculoskeletal: Negative for myalgias. Skin: Negative for rash. Neurological: Negative for focal weakness and seizures. Endo/Heme/Allergies: Negative for polydipsia. Psychiatric/Behavioral: Negative for hallucinations. Vitals see chart PHYSICAL EXAMINATION GENERAL: The patient is alert and oriented*3 HEENT: Nonicteric sclerae, non traumatic HEART: Regular rate and rhythm with no murmurs LUNGS: Clear to auscultation bilaterally ABDOMEN: No acute issues, non tender GENITAL, RECTAL: deferred SKIN: No rash NEUROLOGIC: NFND EXTREMITIES: No edema ASSESSMENT CHEST PAIN, ELEVATED TROPONINS At presentation DIABETES CORE MEASURES pending OTHER MEDICAL PROBLEMS Hysterectomy, cholecystectomy PLAN 02/28/2025 patient with chest pain at presentation, no active cardiovascular symptoms at this time, minimally elevated troponins and EKG changes. Plan for stress test, echocardiogram tomorrow to further evaluate. Risk benefits addressed. Seen and examined 02/28/2025 at around 9 PM. ATTESTATION I was involved substantially in the care of this patient Number and complexity of problems addressed: 1 acute illness with systemic features Amount and or complexity of data Review of prior external note(s) from each unique source: 2+ Ordering of each unique test : 0 Review of the result(s) of each unique test: 2+ Assessment requiring an independent historian(s): No Independent interpretation of test performed by another MD/QHCP/appropriate source (not separately reported) : No Discussion of management or test interpretation with external MD/QHCP/appropriate source (not separately reported) : No Risk status (cardiac, billing related): Moderate FILIBERTO CORREIA MD Mar 01, 2025 07:16
[2025-03-01 07:21] LABS: ASPARTATE AMINOTRANSFERASE 37.0 U/L (10-37); CREATINE KINASE, TOTAL 43.0 U/L (21-232); CREATININE 0.8 mg/dL (0.5-1.0); GLOMERULAR FILTR. RATE CALC 80.0 mL/min (>90); GLUCOSE,RANDOM 165.0 mg/dL (70-105); LDL DIRECT 76.0 mg/dL (0-99); SODIUM SERUM 141.0 mmol/L (136-145); TOTAL PROTEIN, SERUM 6.7 g/dL (6.0-8.3); UREA NITROGEN, BLOOD 12.0 mg/dL (7-18)
[2025-03-01] MEDS: ASPIRIN 81 MG EC TAB PO SCH (07:29)
[2025-03-01] MEDS: FAMOTIDINE 20MG TAB PO SCH (07:30)
[2025-03-01 08:00] VITALS: BP 133/70; PULSE 61; RESP 18; O2SAT 96
[2025-03-01 08:22] LABS: IMMATURE GRANULOCYTE ABSOLUTE 0.01 K/uL (0-1); NUCLEATED RED BLOOD CELLS 0.0 % (0.0-0.19); PLATELET COUNT (AUTO) 109 K/uL (130-400); RED BLOOD CELL COUNT(AUTO) 4.31 MIL/uL (4.00-5.50); RED CELL DISTRIBUTION WIDTH 14.6 % (11.0-15.5); WHITE BLOOD COUNT (AUTO) 2.5 K/uL (4.8-10.8)
[2025-03-01 08:50] LABS: ERYTHROCYTE SEDIMENTATION RATE 3 MM/HR (0-30)
[2025-03-01 09:31] LABS: BAND NEUTROPHILS % (MANUAL) 1 % (0-2); BASOPHILS % (MANUAL) 1 % (0-2); EOSINOPHILS % (MANUAL) 3 % (1-6); LYMPHOCYTES % (MANUAL) 50 % (22-44); MONOCYTES % (MANUAL) 4 % (2-9); SEGMENTED NEUTROPHILS % 41 % (40-70)
[2025-03-01 09:32] LABS: MAN.DIFF COMMENT-IMPRESSION MANUAL DIFFERENTIAL
[2025-03-01 09:33] LABS: PLATELET MORPHOLOGY COMMENT SLIGHTLY DECREASED; WBC MORPHOLOGY CONSISTENT W/DIFF
[2025-03-01 12:00] VITALS: BP 160/83; PULSE 66; RESP 18
--- NOTE | 2025-03-01 12:37 | PN ---
[facility] PROGRESS NOTE Date of Service: Mar 01, 2025 Time of Service: 12:36 HISTORY OF PRESENT ILLNESS: This is a 70-year-old female past medical history of diabetes surgical history of hysterectomy, left knee surgery and cholecystectomy presents to the ED for complaints of left-sided chest pain started earlier today.Patient reports initially pain feels like it is tingling in sensation and and tolerable as the day progressed chest pain intensity is getting worse associated with neck pain , mild headache and mild shortness of breath.Patient reports she is overwhelmed with her life right now,she is building a house and she kept thinking about the expenses and she is also worried about her family and her son in law's niece got shot recently and she is very much worried about him as well.Patient was teary eyed as she was verbalizing her problems and states she is depressed but no thoughts of harming herself or others. Seen and examined patient in the ER awake,alert and oriented,patient states chest pain has subsided. Denies fever, chills, cough, palpitation , diaphoresis, nausea and vomiting. Latest vital signs temperature 97.9, heart rate 66, blood pressure 130/61 saturation 96% on room air. CBC unremarkable. Random glucose 164, BNP 45 troponin 67, 65 to 59. Rest of the chemistries normal. Chest x-ray result revealed cardiac silhouette prominent no active infiltrate. EKG result revealed sinus rhythm probable left ventricular hypertrophy prolonged QT interval no previous ECG available for comparison. While in the ER patient received aspirin 325 mg p.o. social services analyst was consulted and and due to cardiac stress test in the morning. With the patient for further medical management. SUBJECTIVE: 03/01/2025: Patient presented to the ED with atypical chest pain that started yesterday morning. Patient states it felt like a tingling sensation and subsequently had pressure-like sensation as the day progressed. Patient rated the pain at 4/10. Patient reports radiation to neck, and mild headache. Patient's chest pain resolved spontaneously without nitroglycerin. Patient denies angina however admits to shortness of breath in the preceding months. Patient denied chest pain during the evaluation. Dr. Gaitan recommended perf orming a 2D echo and Lexiscan which was conducted this morning, pending interpretation. We will continue [id number] mg. Her potassium was low 3.3, will be replaced. We will continue to monitor for further Cardiology recommendations. REVIEW OF SYSTEMS CONSTITUTIONAL: Denies fevers, chills, or night sweats. No unintentional weight loss reported. NEUROLOGICAL: Complain of mild headache and neck pain Denies motor weakness, sensory deficit, vertigo/spinning sensation, gait abnormalities, or tremors. ENT: No hearing loss, otalgia, otorrhea, rhinitis, rhinorrhea, hoarseness, or sore throat. CARDIOVASCULAR: Complain of chest pain, resolved. Admits to dyspnea on exertion . Denies orthopnea, paroxysmal nocturnal dyspnea, palpitations, life-threatening arrhythmias, claudication. PULMONARY: Denies shortness of breath. Denies cough, phlegm/sputum, hemoptysis, pleuritic chest pain. SLEEP: Denies morning headaches, daytime somnolence or napping. Denies difficulty falling asleep, staying asleep, waking from sleep. Denies knowledge of snoring. GASTROINTESTINAL: Denies any type of dysphagia to either liquids or solids. Denies nausea, vomiting, pyrosis, early satiety, abdominal pain, diarrhea, constipation, or changes in stool consistency or caliber. Denies coffee-ground emesis, hematemesis, hematochezia, or melanotic stools. GENITOURINARY: Denies frequency, urgency, nocturia, hematuria or incontinence (Storage/Irritative symptoms.) Low urinary stream, straining to void, urinary intermittency or hesitancy, splitting of the voiding stream, terminal dribbling. ENDOCRINOLOGIC: Denies polyuria, polydipsia, polyphagia or heat/cold intolerances. HEMATOLOGIC: Admits to having low platelets ONCOLOGIC: Denies personal history of malignancy. DERMATOLOGIC: Denies rashes or pruritus. PSYCHIATRIC: Denies any suicidal or homicidal ideation. Denies hallucinations. PHYSICAL EXAM GENERAL APPEARANCE: The patient is awake, alert, and oriented, in no acute cardiopulmonary distress. NEUROLOGICAL: Cranial nerves II-XII grossly intact. Motor is 5/5 in bilateral upper and lower extremities proximal to distal. No sensory deficits. HEENT: Face is symmetric. Pupils are equal and reactive. Extraocular movements are intact. NECK: Supple. No JVD. No thyromegaly. No submental, submandibular, pre- /postauricular, occipital or supraclavicular lymphadenopathy. CHEST: Normal chest expansion. No Telemetry. LUNGS: Absence of any rales, rhonchi or any wheezing. CARDIOVASCULAR: Regular. S1 and S2 normal. No appreciable rubs, murmurs or ga llops. ABDOMEN: Soft, nontender, and nondistended. There is no rebound, voluntary guarding, or rigidity. : Deferred. No Johnson. EXTREMITIES: Non-edematous and not cyanotic. No clubbing. Good capillary refill. SKIN: No skin breakdown. Vital Signs (last 8hr) Date Time Temp Pulse Resp B/P (MAP) Pulse Ox O2 Delivery O2 Flow Rate FiO2 03/01/25 08:00 61 18 133/70 96 Room Air 0.0 03/01/25 08:00 96 Room Air* 0 21 03/01/25 07:20 57 16 133/70 96 Room Air* 0 21 03/01/25 05:02 56 18 140/77 96 Room Air* 0 21 LABS: Laboratory: Test 03/01/25 11:44 03/01/25 11:20 03/01/25 08:00 03/01/25 06:51 Range/Units Troponin I High Sensitivity 74 *H 4-50 ng/L Whole Blood Glucose 149 H 70-110 MG/DL White Blood Count 2.5 L 4.8-10.8 K/uL Red Blood Count 4.31 4.00-5.50 MIL/uL Hemoglobin 12.6 12.0-16.0 g/dL Hematocrit 37.0 36-48 % Mean Corpuscular Volume 85.8 79-99 fL Mean Corpuscular Hemoglobin 29.2 27.0-33.0 pg Mean Corpuscular Hemoglobin Concent 34.1 32.0-36.0 g/dL Red Cell Distribution Width 14.6 11.0-15.5 % Platelet Count 109 #L 130-400 K/uL Mean Platelet Volume 10.7 H 7.5-10.5 fL Immature Granulocyte % (Auto) 0.4 0-1 % Neutrophils (%) (Auto) 50.6 40.0-77.0 % Lymphocytes (%) (Auto) 37.7 21.0-51.0 % Monocytes (%) (Auto) 7.3 3.0-13.0 % Eosinophils (%) (Auto) 3.2 0.0-8.0 % Basophils (%) (Auto) 0.8 0.0-5.0 % Neutrophils # (Auto) 1.3 L 1.8-7.7 K/uL Lymphocytes # (Auto) 0.9 L 1.0-4.8 K/uL Monocytes # (Auto) 0.2 0.1-1.0 K/uL Eosinophils # (Auto) 0.08 0.00-0.70 K/uL Basophils # (Auto) 0.02 0.00-0.20 K/uL Absolute Immature Granulocyte (auto 0.01 0-1 K/uL Segmented Neutrophils % 41 40-70 % Band Neutrophils % 1 0-2 % Lymphocytes % (Manual) 50 H 22-44 % Monocytes % (Manual) 4 2-9 % Eosinophils % (Manual) 3 1-6 % Basophils % (Manual) 1 0-2 % Nucleated Red Blood Cells 0.0 0.0-0.19 % Differential Comment MANUAL DIFFERENTIAL White Cell Morphology Comment CONSISTENT W/DIFF Platelet Morphology Comment SLIGHTLY DECREASED Red Blood Cell Morphology ANISO 1+ Erythrocyte Sedimentation Rate 3 0-30 MM/HR Sodium Level 141 136-145 mmol/L Potassium Level 3.3 L 3.5-5.1 mmol/L Chloride Level 106 101-111 mmol/L Carbon Dioxide Level 28 21-32 mmol/L Blood Urea Nitrogen 12 7-18 mg/dL Creatinine 0.8 0.5-1.0 mg/dL Glomerular Filtration Rate Calc 80 >90 mL/min Random Glucose 165 H 70-105 mg/dL Total Calcium 8.7 8.5-10.1 mg/dL Magnesium Level 1.80 1.80-2.40 mg/dL Total Bilirubin 1.4 H 0.2-1.0 mg/dL Aspartate Amino Transf (AST/SGOT) 37 10-37 U/L Alanine Aminotransferase (ALT/SGPT) 51 12-78 U/L Alkaline Phosphatase 137 H 50-136 U/L Total Creatine Kinase 43 # 21-232 U/L Total Protein 6.7 6.0-8.3 g/dL Albumin 3.2 L 3.5-5.0 g/dL Triglycerides Level 117 30-200 mg/dL Cholesterol Level 135 <200 mg/dL LDL Cholesterol 76 0-99 mg/dL HDL Cholesterol 39 35-85 mg/dL Thyroid Stimulating Hormone (TSH) 2.20 0.36-3.74 uIU/mL Test 02/28/25 17:45 Range/Units Prothrombin Time 12.4 H 9.6-11.6 SEC Prothromb Time International Ratio 1.19 H 0.85-1.15 Activated Partial Thromboplast Time 25.4 L 26.3-35.5 SEC Hemoglobin A1c 7.5 H 4.0-6.0 % Estimated Average Glucose (eAG) 169 H 70-126 mg/dL B-Type Natriuretic Peptide 45 0-100 pg/mL Current Medications Medications (Trade) Dose Ordered Sig/Brianne Route PRN Reason Start Time Stop Time Status Last Admin Dose Admin Acetaminophen (TYLenol 325MG TAB) 650 mg Q4H PRN PO MILD PAIN (1-3) 02/28/25 23:00 03/30/25 22:59 Acetaminophen (TYLenol 325MG TAB) 650 mg Q6H PRN PO TEMPERATURE GREATER THAN 101.5 02/28/25 23:00 03/30/25 22:59 Aspirin (Aspirin 81mg Ec Tab) 81 mg DAILY PO 03/01/25 09:00 03/31/25 08:59 Dextrose (D50w) 50 ml AD PRN IV HYPOGLYCEMIA PROTOCOL 02/28/25 23:00 03/30/25 22:59 Famotidine (Pepcid 20mg Tab) 20 mg BID PO 03/01/25 09:00 03/31/25 08:59 Glucagon (Glucagon 1mg Kit) 1 mg AD PRN IM HYPOGLYCEMIA PROTOCOL 02/28/25 23:00 03/30/25 22:59 Insulin Human Regular (humuLIN R 100 UNIT/ML 3ML) INSULIN SLIDING SCAL... ACHS SQ 03/01/25 07:30 03/31/25 07:29 Ondansetron HCl (zoFRAN 4MG INJ) 4 mg Q6H PRN IV NAUSEA/VOMITING 02/28/25 23:00 03/30/25 22:59 DIAGNOSTICS / RADIOLOGY: [ ] PATIENT: MARTA ESPINOSA MR#: [id number] : 1955 SEX: F AGE: 70 LOCATION: [facility] ORDER 34 STATUS: REG ER REPORT#: [id number] SERVICE 33 REASON: CP ORDERING PHYSICIAN: SARAH MISTRY PAC PROCEDURE: CXR1VW - CHEST 1VW EXAM: CR Chest, 1 View. CLINICAL HISTORY: CP COMPARISON: None provided. FINDINGS: LUNGS: No active infiltrate PLEURAL SPACES: No evidence of pleural effusion or pneumothorax. MEDIASTINUM: Cardiac silhouette prominent BONES: No aggressive appearing osseous lesion seen. IMPRESSION: 1. Cardiac silhouette prominent 2. 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 Immune thrombocytopenic purpura, POA History of colonic polyps, POA Hypokalemia POA Hypoalbuminemia POA PLAN: Chest pain, rule out ACS * Patient presents with atypical chest pain, heart score of 5 * Serial troponins x 3 were 59, 65, 74 * EKG showed no repolarization abnormalities, LVH and prolonged CA interval * 2D echo performed pending interpretation * Cardiolite Lexiscan performed, pending interpretation * Continue aspirin 81 mg * We will follow up with Cardiology recommendations Immune thrombocytopenic purpura * Review of external records from PCP revealed patient has immune thrombocytopenic purpura * Platelets on presentation was 151, which is 109 this morning, leukocytes 2.5k * Patient follows Lazaro Tim * Continue Promacta 50 mg * Monitor labs Hypokalemia * Patient's potassium on presentation was 3.3 * Continue potassium replacement as per protocol * Monitor labs in the a.m. Non alcoholic Liver cirrhosis with esophageal varices without bleeding * Review of external records from PCP revealed patient has liver cirrhosis with esophageal varices greater than 5 mm, portal hypertensive gastropathy * Likely due to NAFLD, follows up with Dr. Landon Wilson * Continue to monitor H & H and repeat labs in the a.m. Uncontrolled diabetes * Patient HB A1c was 7.5 on admission * Currently placed on insulin sliding scale with regular insulin * Glucose checks q.6 * Continue hypoglycemia protocol * We will repeat labs and adjust insulin if needed tomorrow Continue DVT prophylaxis with SCDs, GI prophylaxis with famotidine ATTESTATION BY PHYSICIAN I have seen and examined the patient. I reviewed the documentation, medical decision making, and treatment plan as noted by the resident physician above. I agree with the findings and plan of care. NANNETTE HO MD, HARSHAVARDHA MD Mar 01, 2025 12:37
[2025-03-01] MEDS ORDERED: PoTASSium chl 10% ELIXIR 20MEQ 20 MEQ/15 ML UDCUP PO PRN (13:00)
[2025-03-01] MEDS ORDERED: SUCR1TAB2 PO (13:18)
[2025-03-01] MEDS ORDERED: ELTR50TA PO (13:18)
[2025-03-01] MEDS ORDERED: DULA1.5P SQ (13:18)
[2025-03-01] MEDS: REGADENOSON 0.4 MG/5 ML PF SYG IVP ONE (13:42)
[2025-03-01 14:19] VITALS: BP 136/63; PULSE 64; RESP 18
[2025-03-01] MEDS: PoTASSium chloRIDE 20MEQ ER 20 MEQ ERTAB PO PRN (15:05)
--- NOTE | 2025-03-01 15:47 | NUR ---
called report to DEBBIE Alatorre, patient admitted to [facility] floor to room 301
--- NOTE | 2025-03-01 15:55 | NUR ---
UNIT ARRIVAL PATIENT ARRIVED TO UNIT VIA WHEELCHAIR. AWAKE, ALERT AND ORIENTED. NO SIGNS OF DISTRESS NOTED. NO REPORTS OF PAIN AT THIS TIME. BED LOCKED IN LOWEST POSITION, CALL LIGHT WITHIN REACH.
--- NOTE | 2025-03-01 16:50 | NUR ---
DCP:HOME Pt currently lives at home with her Alfonso Molina [phone]. Pt does use a cane at home to ambulate. Pt does not have any home health or provider services. Pt states that she can complete ADLs independently slowly. PCP is Dr. Joe Brennan and uses [facility] for any RX needs. At [place] pt will want to go home and family can assist with transportation.
[2025-03-01 20:00] VITALS: BP 98/65; PULSE 66; RESP 24; TEMP 98; O2SAT 96
--- NOTE | 2025-03-01 22:11 | PN ---
CARDIOLOGY Reason for consult: Chest pain HPI/story at presentation: This is a pleasant 70-year-old female with past medical history of depression with complaints of atypical chest discomfort to the emergency room. Was found to have EKG changes and mild elevated troponins of liver, cardiology was consulted for further evaluation and management Past medical history: See below Allergies, Meds See chart Review of systems Review of Systems Constitutional: Negative for chills and fever. HENT: Negative for ear discharge and ear pain. Eyes: Negative for photophobia and discharge. Respiratory: Negative for cough, sputum production and stridor. Cardiovascular: Negative for chest pain and palpitations. Gastrointestinal: Negative for diarrhea and vomiting. Genitourinary: Negative for frequency. Musculoskeletal: Negative for myalgias. Skin: Negative for rash. Neurological: Negative for focal weakness and seizures. Endo/Heme/Allergies: Negative for polydipsia. Psychiatric/Behavioral: Negative for hallucinations. Vitals see chart PHYSICAL EXAMINATION GENERAL: The patient is alert and oriented*3 HEENT: Nonicteric sclerae, non traumatic HEART: Regular rate and rhythm with no murmurs LUNGS: Clear to auscultation bilaterally ABDOMEN: No acute issues, non tender GENITAL, RECTAL: deferred SKIN: No rash NEUROLOGIC: NFND EXTREMITIES: No edema ASSESSMENT CHEST PAIN, ELEVATED TROPONINS At presentation DIABETES CORE MEASURES pending OTHER MEDICAL PROBLEMS Hysterectomy, cholecystectomy PLAN 02/28/2025 patient with chest pain at presentation, no active cardiovascular symptoms at this time, minimally elevated troponins and EKG changes. Plan for stress test, echocardiogram tomorrow to further evaluate. Risk benefits addressed. Seen and examined 02/28/2025 at around 9 PM. 03/01/2025 Stress test and echocardiogram within normal limits, to be managed conservatively. Minimally elevated troponin, home when okay with primary team likely in the morning. Seen and examined 03/01/2025 at around 2100. ATTESTATION I was involved substantially in the care of this patient Number and complexity of problems addressed: 1 acute illness with systemic features Amount and or complexity of data Review of prior external note(s) from each unique source: 2+ Ordering of each unique test : 0 Review of the result(s) of each unique test: 2+ Assessment requiring an independent historian(s): No Independent interpretation of test performed by another MD/QHCP/appropriate source (not separately reported) : No Discussion of management or test interpretation with external MD/QHCP/appropriate source (not separately reported) : No Risk status (cardiac, billing related): Moderate Vitals/Labs Vital Signs Date Time Temp Pulse Resp B/P (MAP) Pulse Ox O2 Delivery O2 Flow Rate FiO2 03/01/25 20:00 98.1 66 24 98/65 96 Room Air 03/01/25 14:19 0.0 03/01/25 08:00 21 Laboratory Tests 03/01/25 06:51 03/01/25 08:00 Medications Current Medications Aspirin 325 mg ONCE ONCE PO Last administered on 02/28/25at 20:46; Start 02/28/25 at 18:30; Stop 02/28/25 at 18:31; Status DC Acetaminophen 650 mg Q6H PRN PO; Start 02/28/25 at 23:00; Stop 03/30/25 at 22:59 Acetaminophen 650 mg Q4H PRN PO; Start 02/28/25 at 23:00; Stop 03/30/25 at 22:59 Ondansetron HCl 4 mg Q6H PRN IV; Start 02/28/25 at 23:00; Stop 03/30/25 at 22:59 Famotidine 20 mg BID PO Last administered on 03/01/25at 20:47; Start 03/01/25 at 09:00; Stop 03/31/25 at 08:59 Insulin Human Regular INSULIN SLIDING SCAL... ACHS SQ Last administered on 03/01/25at 20:52; Start 03/01/25 at 07:30; Stop 03/31/25 at 07:29 Dextrose 50 ml AD PRN IV; Start 02/28/25 at 23:00; Stop 03/30/25 at 22:59 Glucagon 1 mg AD PRN IM; Start 02/28/25 at 23:00; Stop 03/30/25 at 22:59 Aspirin 81 mg DAILY PO; Start 03/01/25 at 09:00; Stop 03/31/25 at 08:59 Regadenoson 0.4 mg STK-MED ONCE IVP Last administered on 03/01/25at 13:42; Start 03/01/25 at 08:56; Stop 03/01/25 at 08:57; Status DC Potassium Chloride 100 ml @ 100 mls/hr AD PRN IV; Start 03/01/25 at 13:00; Stop 03/31/25 at 12:59 Potassium Chloride 20 meq AD PRN PO; Start 03/01/25 at 13:00; Stop 03/31/25 at 12:59 Potassium Chloride 20 meq AD PRN PO Last administered on 03/01/25at 15:05; Start 03/01/25 at 13:00; Stop 03/31/25 at 12:59 Hydralazine HCl 10 mg Q6H PRN IV; Start 03/01/25 at 14:00; Stop 03/31/25 at 13:59 Home Med (Eltrombopag Olamine (Promac... DAILY PO; Start 03/02/25 at 09:00; Stop 04/01/25 at 08:59 FILIBERTO CORREIA MD Mar 01, 2025 22:11
[2025-03-02] VITALS: BP 133/84; PULSE 72; RESP 22; TEMP 97.6; TEMP 98
[2025-03-02 04:07] VITALS: BP 118/63; PULSE 65; RESP 24; TEMP 97.8
[2025-03-02 04:56] LABS: IMMATURE GRANULOCYTE ABSOLUTE 0.01 K/uL (0-1); NUCLEATED RED BLOOD CELLS 0.0 % (0.0-0.19); PLATELET COUNT (AUTO) 115 K/uL (130-400); RED BLOOD CELL COUNT(AUTO) 4.30 MIL/uL (4.00-5.50); RED CELL DISTRIBUTION WIDTH 14.6 % (11.0-15.5); WHITE BLOOD COUNT (AUTO) 3.2 K/uL (4.8-10.8)
[2025-03-02 05:09] LABS: CREATININE 0.7 mg/dL (0.5-1.0); GLOMERULAR FILTR. RATE CALC 94.0 mL/min (>90); GLUCOSE,RANDOM 135.0 mg/dL (70-105); SODIUM SERUM 142.0 mmol/L (136-145); UREA NITROGEN, BLOOD 12.0 mg/dL (7-18)
[2025-03-02 08:00] VITALS: BP 127/65; PULSE 56; RESP 18; TEMP 97.7; O2SAT 97
--- NOTE | 2025-03-02 08:08 | HMCSR ---
APPROVED REPORT Height: 5 ft 2in Weight: 203 lbs TEST INDICATIONS Chest Pain The imaging protocol used to acquire images was Rest Tc-99m/stress Tc-99m 1 day Consent: The procedure was explained and understood by the patient. Informerd consent was witnessed by Cristal Mcintyre RN First, low dose rest was performed then high dose stress. RESTING DATA: The resting ekg shows: NSR Rest SPECT myocardial perfusion imaging was performed in supine position minutes following the intravenous injection of 12 mCi of Tc-99 Sestamibi. Time of rest injection: 08 Date: 03/01/2025 PHARMACOLOGIC STRESS: Pharmacologic stress test was performed by injecting regadenoson 0.4 mg IV push followed by the intravenous injection of 30 mCi of Tc-99 Sestamibi. Time of stress injection: 1051 Date: 03/01/2025 Heart Rate at time of stress injection: 63 bpm. Gated Stress SPECT was performed 60 minutes after stress injection. The images were gated to evaluate regional wall motion and calculate left ventricular ejection fraction. STRESS DETAILS Reason for Termination: Infusion complete Stress Symptoms: Dyspnea Max HR Achieved: 72 bpm % of APMHR Achieved: 56 Max Blood Pressure: 131/63 mmHg Stress ECG: NSR LV PERFUSION uniform tracer uptake in all fields. No evidence of ischemia or infarction noted. Normal ejection fraction. Overall, low risk study. Low risk study as above Conclusion uniform tracer uptake in all fields. No evidence of ischemia or infarction noted. Normal ejection fraction. Overall, low risk study. Low risk study as above
--- NOTE | 2025-03-02 08:20 | HMCSR ---
APPROVED REPORT EXAM: Two-dimensional and M-mode echocardiogram with Doppler and color Doppler. INDICATION ICD: Chest Pain 2D Dimensions RVDd 3.5 cm LVEF(%) 50.8 (>50%) LA ESV INDEX (BP) 28.27 mL/m2 IVSd 1.2 (0.7-1.1cm) FS(%) 26 % LVDd 4.7 (3.8-5.6cm) LA (2D) 4.0 (1.6-4.0cm) PWd 1.2 (0.7-1.1cm) Ao Root(2D) 3.3 (2.0-3.7cm) IVSs 1.2 cm LVOT diam 2.2 (1.8-2.4cm) LVDs 3.5 (2.5-4.0cm) IVC diam 1.5 cm PWs 1.5 cm Deformation Strain Apical 4 -19.3 % Apical 2 -18.8 % Apical 3 -20.2 % Global Strain -19.5 % M-Mode Dimensions EPSS 1.0 cm LA (MM) 4.8 (1.6-4.0cm) Ao Root(MM) 3.3 (2.0-3.7cm) Aortic Valve AoV Vmax 1.5 m/s Ao Peak GR 8.7 mmHg LVOT Vmax 1.0 m/s AoV VTI 0.3 m Ao Mean GR 3.7 mmHg LVOT VTI 0.25 m UMU (VMAX) 2.62 cm2 UMU (VTI) 3.5 cm2 Mitral Valve MV E Vmax 63.9 cm/s DECEL Time 179 ms MV A Vmax 86.5 cm/s P 1/2 T 53 ms E/A ratio 0.7 MVA (PHT) 4.2 cm2 TDI E/E' Medial 16.4 E/E' Lateral 9.1 Medial E' Peak V 3.90 cm/s Lateral E' Peak V 7.00 cm/s Pulmonary Valve PV Vmax 1.1 m/s PI End Ila. Good 88.6 cm/s PV Mean GR 1.7 mmHg PV Peak GR 5.1 mmHg Tricuspid Valve TR Vmax 2.3 m/s RAP (EST) 3 mmHg RVSP 23.3 mmHg TR Peak GR 20.3 mmHg Left Ventricle The left ventricle is normal size. GLS -20.0% There is normal left ventricular wall thickness. LVEF is 60-65%. The left ventricular diastolic function is normal. Right Ventricle The right ventricle is normal size. The right ventricular systolic function is normal. Atria The left atrium size is normal. The right atrium size is normal. Aortic Valve The aortic valve is normal in structure. Trace of aortic regurgitation is present. There is no aortic valvular stenosis. Mitral Valve The mitral valve is normal in structure. There is trace of mitral valve regurgitation noted. There is no mitral valve stenosis. Tricuspid Valve The tricuspid valve is normal in structure. There is trace of tricuspid valve regurgitation noted. Pulmonic Valve The pulmonary valve is normal in structure. There is no pulmonic valvular regurgitation. Great Vessels The aortic root is normal in size. The IVC is normal in size and collapses >50% with inspiration. Pericardium There is no pericardial effusion. Other Information Quality : Adequate Conclusion LVEF is 60-65%. The left ventricular diastolic function is normal. There is normal left ventricular wall thickness. The left ventricle is normal size. GLS -20.0% There is no pericardial effusion. Study quality was adequate
[2025-03-02] MEDS: (Eltrombopag Olamine (Promacta) 1 TAB) PO SCH (09:00)
[2025-03-02 11:23] VITALS: BP 123/58; PULSE 73; RESP 18; TEMP 97.9
[2025-03-02 11:27] VITALS: BP 123/58; PULSE 73; RESP 18; TEMP 97.9
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
--- NOTE | 2025-03-02 12:35 | NUR ---
PATIENT DISCHARGED PATIENT DISCHARGED TO HOME. PERIPHERAL IV REMOVED CATHETER INTACT. DISCHARGE INSTRUCTIONS GIVEN. PATIENT AWARE TO F/U WITH PCP. NO NEW PRESCRIPTIONS. ALL QUESTIONS ANSWERED. ALL BELONGINGS SENT WITH PATIENT. PATIENT TAKEN DOWN BY WHEELCHAIR TO PRIVATE VEHICLE.
== END 2025-03-02 12:40 | disposition home or self-care (01) ==
LOC: EDH 17:26 → INTOOBSV 22:59 → EDHIP 22:59 → UNDOADMOB 22:59 → 3AH 03-01 15:55 → EDHIP 03-01 15:55 → 3AH 03-02 09:30
PROVIDERS: ADMIT Internal Medicine; ATTEND Internal Medicine
DX: R07.89 Other chest pain (principal); R79.89 Other specified abnormal findings of blood chemistry; E11.65 Type 2 diabetes mellitus with hyperglycemia; R51.9 Headache, unspecified; R20.2 Paresthesia of skin; E87.6 Hypokalemia; F32.A Depression, unspecified; E66.9 Obesity, unspecified; M79.2 Neuralgia and neuritis, unspecified; D69.3 Immune thrombocytopenic purpura; K70.30 Alcoholic cirrhosis of liver without ascites; I85.10 Secondary esophageal varices without bleeding; E88.09 Other disorders of plasma-protein metabolism, not elsewhere classified; Z79.82 Long term (current) use of aspirin; Z86.0100 Personal history of colon polyps, unspecified; Z90.710 Acquired absence of both cervix and uterus; Z68.36 Body mass index [BMI] 36.0-36.9, adult
CPT/HCPCS: 99285; 83036; 83735 ×2; 84484 ×5; 80048 ×2; 83880; 85025 ×3; 85610; 85730; 36415 ×3; 71045; 93005 ×2; 84443; 82550; 80061; 80053; 85651; 82948 ×5; 93017; 78452; 93306; 93356; J1815 ×2; J2785; A9500 ×2; G0378 ×3

== ENCOUNTER → 2025-03-16 | Outpatient (CLI) | payer OTHER ==
[~2025-03-16] MED LIST changes: -ASCO500C18 PO; +DULA1.5P SQ; +ELTR50TA PO; -HYDR-4060 PO; -KETO10 PO; -MAGN400T40 PO; -MULT-1192 PO; -MV-M1TAB20 PO; -NAPR-1180 PO; +SUCR1TAB2 PO; -ZINC50TA64 PO
--- NOTE | 2025-03-16 21:36 | HMCIMG ---
STUDY: X-RAY OF THE CERVICAL SPINE, 3 VIEWS HISTORY: Cervicalgia. TECHNIQUE: Three views of the cervical spine are submitted for interpretation. COMPARISON: None provided. FINDINGS: Bones and joints: Mild chronic compression deformities of the C5 and C6 vertebral bodies are noted, without definite acute fracture or subluxation. There is multilevel endplate osteophytic spurring, most consistent with cervical spondylosis. Mild generalized osteopenia is present. Disc spaces: Disc height loss is noted at C7???T1 and T1???T2, compatible with degenerative disc disease. The remaining visualized disc spaces are relatively preserved. Soft tissues: Prevertebral soft tissues are within normal limits. No radiopaque foreign body or soft tissue gas is identified. IMPRESSION: * Mild chronic compression deformities of C5 and C6 with associated multilevel endplate osteophytes, in keeping with cervical spondylosis. * Degenerative disc disease with disc height loss at C7???T1 and T1???T2. * Mild osteopenia. * Correlate clinically; cervical spine MRI is suggested if there are radicular symptoms or concern for spinal canal or foraminal stenosis. /[place]
== END | disposition home or self-care (01) ==
LOC: RAH 07:13
PROVIDERS: ATTEND Internal Medicine
DX: M47.812 Spondylosis without myelopathy or radiculopathy, cervical region (principal); M43.8X2 Other specified deforming dorsopathies, cervical region; M25.78 Osteophyte, vertebrae; M50.33 Other cervical disc degeneration, cervicothoracic region; M85.88 Other specified disorders of bone density and structure, other site
CPT/HCPCS: 72040